=== PATIENT | female | born 1960 | race Two or more races ===

== ENCOUNTER 2020-09-19 10:43 | Outpatient (REF) | payer MEDICAID, SELFPAY | END 2020-09-19 10:44 | disposition home or self-care (01) | LOC: HO.LAB 10:43 | PROVIDERS: Visit Provider Internal Medicine | DX: Z20.828 Contact with and (suspected) exposure to other viral communicable diseases (principal) | CPT/HCPCS: C9803; U0003 ==

== ENCOUNTER 2020-10-19 14:25 | Outpatient (REF) | payer MEDICAID, SELFPAY | END 2020-10-19 14:26 | disposition home or self-care (01) | LOC: HO.LAB 14:25 | PROVIDERS: Visit Provider Internal Medicine | DX: Z20.828 Contact with and (suspected) exposure to other viral communicable diseases (principal) | CPT/HCPCS: C9803; U0003 ==

== ENCOUNTER 2020-12-25 10:07 | Outpatient (REF) | payer MEDICAID, SELFPAY ==
--- NOTE | ~2020-12-25 | MR_ITS ---
EXAMINATION: MRI RIGHT SHOULDER WITHOUT CONTRAST, LEFT CLINICAL INFORMATION: Right shoulder pain. Decreased range of motion. Weakness. Symptoms suggestive of rotator cuff tear. COMPARISON: None. TECHNIQUE: Multisequence MR imaging of the left shoulder was obtained without contrast on a high-field strength scanner. FINDINGS: ROTATOR CUFF: Mild distal supraspinatus tendinosis with possible bursal surface fraying measuring 0.8 cm in AP dimension. No full-thickness rotator cuff defect. No muscle atrophy or fatty infiltration. BICEPS: Normal. CORACOACROMIAL ARCH: The undersurface of the acromion is curved with no subacromial spur. Mild acromioclavicular osteoarthritis with associated marrow edema. LABRUM/CAPSULE: Normal. GLENOHUMERAL JOINT/MARROW: Normal. MR/MR shoulder LT wo con IMPRESSION: 1. Mild distal supraspinatus tendinosis with possible bursal surface fraying. No full-thickness rotator cuff defect. 2. Mild acromioclavicular osteoarthritis with mild associated marrow edema.
== END 2020-12-25 10:08 | disposition home or self-care (01) ==
LOC: HO.MRI 10:07
PROVIDERS: PCP Nurse Practitioner Primary Care; Visit Provider Nurse Practitioner Primary Care
DX: M25.512 Pain in left shoulder (principal)
CPT/HCPCS: 73221

== ENCOUNTER 2021-01-15 13:02 | Outpatient (REF) | payer MEDICAID, SELFPAY ==
--- NOTE | ~2021-01-15 | MM_ITS ---
EXAMINATION: MM DIAGNOSTIC DIGITAL BREAST TOMOSYNTHESIS, BILATERAL US DIAGNOSTIC ULTRASOUND BREAST, RIGHT CLINICAL INFORMATION: Recent mammography. Intermittent bilateral breast pain. No symptoms today. No palpable mass or discharge. COVID vaccine 1st dose right arm around 2 weeks ago. The lifetime risk of breast cancer based on the Tyrer-Cuzick Model is 6%. COMPARISON: Mammography: 10/09/2018, 09/24/2017 (new baseline). TECHNIQUE: Digital breast tomosynthesis is performed in both the craniocaudal and mediolateral oblique views along with computer-aided detection (CAD). Synthesized 2D images are generated from the tomosynthesis. Ultrasound right axillary is performed using grayscale imaging and color Doppler. FINDINGS: There are scattered areas of fibroglandular density (ACR BI-RADS breast composition Category b). Parenchymal pattern is similar to prior studies. There is no interval mass or developing density. No architectural abnormality. Again, there is biopsy clip marker mid upper outer left breast. There is no skin thickening or coarsening of the Jaun's ligaments. Right axillary nodes are better visualized on current exam, similar to 2017. Ultrasound right axilla shows no axillary adenopathy. There are several nodes with normal sergo architecture and color flow pattern. There is no skin thickening or edema tracking in soft tissue planes. Results are discussed with the patient at time of visit. MM/MM tomosynthesis diagnostic BI IMPRESSION: No mammographic evidence of malignancy or inflammatory changes. Unremarkable targeted right axillary ultrasound. ASSESSMENT: BI-RADS 1: Negative RECOMMENDATION: 1. Patient's intermittent migratory breast pain may be managed based on the clinical impression. 2. Otherwise, routine annual screening mammography. This patient's information was entered into a reminder system with a target due date for their next mammogram.
== END 2021-01-15 13:03 | disposition home or self-care (01) ==
LOC: HO.MAMMO 13:02
PROVIDERS: Visit Provider Advanced Practice Midwife
DX: N64.4 Mastodynia (principal)
CPT/HCPCS: 76642; 77062; 77066

== ENCOUNTER 2021-05-17 09:12 | Outpatient (REF) | payer MEDICAID, SELFPAY | END 2021-05-17 09:13 | disposition home or self-care (01) | LOC: HO.HOSX 09:12 | PROVIDERS: Visit Provider Orthopaedic Surgery | DX: Z13.89 Encounter for screening for other disorder (principal) ==

== ENCOUNTER 2021-08-07 10:03 | Outpatient (REF) | payer MEDICAID, SELFPAY ==
--- NOTE | ~2021-08-07 | MR_ITS ---
MRI OF THE BRAIN WITHOUT IV CONTRAST INDICATION: Colloid cyst of the brain. COMPARISON: None available. TECHNIQUE: Multiplanar multisequence MR imaging of the brain was obtained without IV contrast. FINDINGS: No definite colloid cyst is identified within the anterior aspect of the third ventricle at the level of the foramen of Weathers. There is a possible cyst located along the anterior margin of the hypothalamic leaflets above the optic chiasm that can be further assessed with a high-resolution axial FIESTA series and high-resolution MPRAGE postcontrast series. There is no hydrocephalus, extra-axial surface collection, or herniation. Nonspecific mild to moderate T2 signal changes throughout the supratentorial white matter, possibly chronic microangiopathy. The major flow voids at the skull base are preserved. There is no acute infarct on diffusion-weighted imaging. There is no intracranial hemorrhage on the gradient recalled echo acquisition. The midline structures are normal. The cerebellar tonsils are normally positioned. The cerebellum and brainstem are normal. The craniocervical junction is normal. Osseous marrow signal intensity is homogenous. The visualized soft tissues are unremarkable. MR/MR head/brain wo con IMPRESSION: - No definite colloid cyst is identified within the anterior aspect of the third ventricle at the level of the foramen of Weathers. There is a possible cyst located along the anterior margin of the hypothalamic leaflets above the optic chiasm that can be further assessed with a high-resolution axial FIESTA series and high-resolution MPRAGE postcontrast series. - Nonspecific mild to moderate T2 signal changes throughout the supratentorial white matter, possibly chronic microangiopathy.
== END 2021-08-07 10:04 | disposition home or self-care (01) ==
LOC: HO.MRI 10:03
PROVIDERS: Visit Provider Psychiatry & Neurology Neurology
DX: Q04.6 Congenital cerebral cysts (principal)
CPT/HCPCS: 70551

== ENCOUNTER 2022-03-06 08:50 | Outpatient (REF) | payer MEDICAID, SELFPAY ==
--- NOTE | ~2022-03-06 | MM_ITS ---
EXAMINATION: MM SCREENING DIGITAL BREAST TOMOSYNTHESIS, BILATERAL CLINICAL INFORMATION: Screening. Asymptomatic. The lifetime risk of breast cancer based on the Tyrer-Cuzick Model is 7%. COMPARISON: Mammography: 01/15/2021, 10/09/2018, 09/24/2017 (new baseline) TECHNIQUE: Digital breast tomosynthesis is performed in both the craniocaudal and mediolateral oblique views along with computer-aided detection (CAD). Synthesized 2D images are generated from the tomosynthesis. Additional left MLO view is provided. FINDINGS: There are scattered areas of fibroglandular density (ACR BI-RADS breast composition Category b). There are no significant masses, abnormal calcifications, or other abnormalities. Biopsy clip marker again noted upper outer quadrant left breast. The parenchymal pattern is similar to prior studies. No developing density. No significant changes. MM/MM tomosynthesis screening BI IMPRESSION: No mammographic evidence of malignancy. ASSESSMENT: BI-RADS 1: Negative RECOMMENDATION: Routine annual mammography screening. This patient's information was entered into a reminder system with a target due date for their next mammogram.
== END 2022-03-06 08:51 | disposition home or self-care (01) ==
LOC: HO.MAMMO 08:50
PROVIDERS: Visit Provider Nurse Practitioner Primary Care
DX: Z12.31 Encounter for screening mammogram for malignant neoplasm of breast (principal)
CPT/HCPCS: 77063; 77067

== ENCOUNTER → 2022-08-22 10:33 | Outpatient (REF) | payer MEDICAID, SELFPAY | LOC: HO.SL 10:33 | PROVIDERS: PCP Nurse Practitioner Primary Care; Visit Provider Family Medicine | DX: R06.83 Snoring (principal); R53.83 Other fatigue | CPT/HCPCS: 95806 ==

== ENCOUNTER 2023-03-07 10:53 | Outpatient (REF) | payer MEDICAID, SELFPAY ==
--- NOTE | ~2023-03-07 | MM_ITS ---
EXAMINATION: MM SCREENING DIGITAL BREAST TOMOSYNTHESIS, BILATERAL CLINICAL INFORMATION: Screening. Asymptomatic. The lifetime risk of breast cancer based on the Tyrer-Cuzick Model is 6%. COMPARISON: Mammography: 03/06/2022, 01/15/2021, 10/09/2018 TECHNIQUE: Digital breast tomosynthesis is performed in both the craniocaudal and mediolateral oblique views along with computer-aided detection (CAD). Synthesized 2D images are generated from the tomosynthesis. FINDINGS: There are scattered areas of fibroglandular density (ACR BI-RADS breast composition Category b). There are no significant masses, abnormal calcifications, or other abnormalities. Breast tissue composition borders on heterogeneously dense. There is a biopsy clip marker upper outer quadrant left breast mid depth again seen. No developing density or architectural abnormality in either breast. The axilla and skin contours are unremarkable. No significant changes. MM/MM tomosynthesis screening BI IMPRESSION: No mammographic evidence of malignancy. ASSESSMENT: BI-RADS 1: Negative RECOMMENDATION: Routine annual mammography screening. This patient's information was entered into a reminder system with a target due date for their next mammogram.
== END 2023-03-07 10:54 | disposition home or self-care (01) ==
LOC: HO.MAMMO 10:53
PROVIDERS: PCP Nurse Practitioner Primary Care; Visit Provider Family Medicine
DX: Z12.31 Encounter for screening mammogram for malignant neoplasm of breast (principal)
CPT/HCPCS: 77063; 77067

== ENCOUNTER → 2023-03-18 12:50 | Outpatient (BNVA) | payer MEDICAID, SELFPAY | PROVIDERS: PCP Nurse Practitioner Primary Care; Visit Provider Nurse Practitioner Family | DX: G25.81 Restless legs syndrome (principal) | CPT/HCPCS: 99202 ==

== ENCOUNTER → 2023-04-07 20:30 | Outpatient (REF) | payer MEDICAID, SELFPAY | LOC: HO.SL 20:30 | PROVIDERS: PCP Nurse Practitioner Primary Care; Visit Provider Nurse Practitioner Family | DX: R06.83 Snoring (principal); R40.0 Somnolence; I10 Essential (primary) hypertension; G25.81 Restless legs syndrome; G47.33 Obstructive sleep apnea (adult) (pediatric) | CPT/HCPCS: 95810 ==

== ENCOUNTER 2023-05-27 10:24 | Outpatient (AMB) | payer MEDICAID, SELFPAY ==
--- NOTE | 2023-05-27 10:25 | A.OFFVIS_ITS ---
Intake Vital Signs 05/27/23 10:26 Height 5 ft 4 in Weight 146 lb BMI 25.1 BP 128/76 Blood Pressure Location Rt brachial Position Sitting Pulse 67 Pulse Source Pulse Oximeter Pulse Oximetry (%) 98 Intake Visit Reasons: 2 mnts f/u for sleep -Confirmed Intake Note: Patient presents for follow up Allergies No Known Allergies Allergy (Verified 05/27/23 10:27) HPI HPI Comments History of Present Illness Details 62 y/o female patient presents for follow up of sleep study. The PSG sleep study result was significant for mild degree of sleep apnea with increased severity in REM sleep. The AHI was 7/hr, REM AHI was 28/hr and oxygen vasu was 85%. Pt started APAP at [id number] two weeks ago. The compliance and therapy response (04/27/23-05/26/23) reviewed with the patient. The usage days 14 days and the average usage hours 7 hours. The median pressure is 5.9 and the AHI was 0.4/hr. Pt reports that she sleeps well with CPAP and able to sleep 7 hrs straight. She feels more relaxed and wakes up refreshed and has more daytime energy. [facility] Surgical History H/O eye surgery H/O shoulder surgery H/O wrist surgery Family History Mother Diabetes Heart disease Arthritis Neuropathy Father HTN (hypertension) Lung disease Son Asthma Social History Alcohol intake: never Patient Tobacco Use Status: Never used Tobacco Review of Systems Const All systems reviewed & are unremarkable except as noted in HPI and below ENT Reports Normal hearing present Neuro Reports Normal hearing present Physical Exam Vital Signs: Last Vital Signs Pulse 67 05/27/23 10:26 BP 128/76 05/27/23 10:26 Pulse Ox 98 05/27/23 10:26 BMI result Body Mass Index 25.1 Const General: cooperative Nutritional Appearance: overweight Orientation/consciousness: patient oriented x3 Neck Neck: Yes full ROM and Yes supple Resp Effort & Inspection: normal respiratory effort and able to speak in complete sentences Neuro General: patient oriented x3, gait normal, moves all extremities and no focal motor deficits Cranial nerves: Yes Bilaterally intact EOM present, Yes Normal facial strength present, Yes Midline tongue present, Yes Symmetric palate elevation present, Yes Normal hearing present, Yes Ability to bilaterally rotate head present and Yes Ability to bilaterally elevate shoulders present Cognition (Neuro): normal cognition Gait exam (Neuro): Normal gait present Motor exam (neuro): 5/5 motor strength present throughout, Pronator motor function not present and no tremor noted Psych Appearance: grossly normal Mental Status: mental status grossly normal Speech and movement: Normal speech and movement present Affect: normal affect Attitude: cooperative Assessment & Plan Assessment & Plan (1) CAMILO (obstructive sleep apnea): Comment: Mild degree of sleep apnea with increased severity in REM sleep. The AHI was 7/hr, REM AHI was 28/hr and oxygen vasu was 85%. Code(s): G47.33 - Obstructive sleep apnea (adult) (pediatric) Plan Advised patient to continue to use APAP [id number] as patient experiences good clinical result, better sleep quality and daytime sleepiness has improved. Stressed compliance, use CPAP nightly and more than 4 hours. Clean mask and tubing regularly. Coding Level of Care Code Est Pt Level 3 (54119) Diagnoses CAMILO (obstructive sleep apnea) G47.33
[2023-05-27 10:26] VITALS: BP 128/76; PULSE 67; O2SAT 98; BMI 25.1
== END 2023-05-27 10:41 | disposition home or self-care (01) ==
LOC: HO.HSMC 10:24
PROVIDERS: PCP Nurse Practitioner Primary Care; Visit Provider Nurse Practitioner Family
DX: G47.33 Obstructive sleep apnea (adult) (pediatric) (principal)
CPT/HCPCS: 99213

== ENCOUNTER → 2023-05-27 10:24 | Outpatient (BNVA) | payer MEDICAID, SELFPAY | PROVIDERS: PCP Nurse Practitioner Primary Care; Visit Provider Nurse Practitioner Family | DX: G47.33 Obstructive sleep apnea (adult) (pediatric) (principal); Z99.89 Dependence on other enabling machines and devices | CPT/HCPCS: 99213 ==

== ENCOUNTER 2023-06-05 07:43 | Outpatient (REF) | payer MEDICAID, SELFPAY | END 2023-06-05 07:44 | disposition home or self-care (01) | LOC: HO.HOSX 07:43 | PROVIDERS: Visit Provider Orthopaedic Surgery | DX: Z13.89 Encounter for screening for other disorder (principal) ==

== ENCOUNTER 2023-06-23 18:18 | Outpatient (REF) | payer MEDICAID, SELFPAY ==
[2023-06-23 19:06] LABS: Influenza A PCR NEGATIVE (Negative); Influenza B PCR NEGATIVE (Negative); Resp Syncy Virus RNA Qual PCR NEGATIVE (Negative); SARS COV2 PCR INHOUSE NEGATIVE (Negative)
== END 2023-06-23 18:19 | disposition home or self-care (01) ==
LOC: HO.HHCLNP 18:18
PROVIDERS: Visit Provider Registered Nurse
DX: Z20.822 Contact with and (suspected) exposure to COVID-19 (principal); J06.9 Acute upper respiratory infection, unspecified
CPT/HCPCS: 0241U

== ENCOUNTER 2023-07-10 13:11 | Outpatient (REF) | payer MEDICAID, SELFPAY ==
--- NOTE | ~2023-07-10 | US_ITS ---
EXAMINATION: US HAND, RIGHT CLINICAL INFORMATION: Right hand pain. COMPARISON: None available. TECHNIQUE: Ultrasound was performed in the area of clinical concern using a high-frequency linear transducer. FINDINGS: There is a small rounded mass seen measuring 5 x 4 x 6 mm. This is hypoechoic and demonstrates increased through-transmission. No vascularity can be demonstrated. US/US extremity nonvascular IMPRESSION: Small hypoechoic mass in the area of clinical concern. This appears to represent a benign cyst with no vascularity.
== END 2023-07-10 13:12 | disposition home or self-care (01) ==
LOC: HO.US 13:11
PROVIDERS: PCP Nurse Practitioner Primary Care; Visit Provider Registered Nurse
DX: M79.641 Pain in right hand (principal)
CPT/HCPCS: 76882

== ENCOUNTER 2023-08-05 11:38 | Outpatient (REF) | payer MEDICAID, SELFPAY ==
[2023-08-07 07:09] LABS: Absolute CD3 Count 1016 cells/uL (840-3060); Absolute CD4 Count 530 cells/uL (490-1740); Absolute CD8 Count 485 cells/uL (180-1170); Absolute Lymphocytes 1554 cells/uL (850-3900); CD4 CD8 Ratio 1.09 (0.86-5.00); Percent CD3 Cells 65 % (57-85); Percent CD4 Cells 34 % (30-61); Percent CD8 Cells 31 % (12-42)
[2023-08-07 14:24] LABS: HIV RNA PCR Qn Copies 131 copies/mL (NOT DETECTED); HIV RNA PCR Qn Log Copies 2.12 (NOT DETECTED)
== END 2023-08-05 11:39 | disposition home or self-care (01) ==
LOC: HO.HHCL 11:38
PROVIDERS: Visit Provider Internal Medicine
DX: B20 Human immunodeficiency virus [HIV] disease (principal)
CPT/HCPCS: 36415; 80053; 80061; 85025; 86359; 86360; 87536

== ENCOUNTER 2023-09-22 11:22 | Outpatient (REF) | payer MEDICAID, SELFPAY ==
[2023-09-22 13:51] LABS: Estimated Average Glucose 114 mg/dL; Hemoglobin A1c % 5.6 % (<6.0)
[2023-09-23 06:23] LABS: Mumps Virus IgG Antibody <9.00 AU/mL; Rubella IgG Antibody 1.86 Index
[2023-09-23 08:04] LABS: ~HepC Num1 0.14 S/CO (0.00-0.79); ~Hepatitis C Antibody Nonreactive (Nonreactive)
[2023-09-23 14:54] LABS: HIV RNA PCR Qn Copies 281 copies/mL (NOT DETECTED); HIV RNA PCR Qn Log Copies 2.45 (NOT DETECTED)
[2023-09-23 23:48] LABS: C. trachomatis RNA TMA NOT DETECTED (NOT DETECTED); N. gonorrhoeae RNA TMA NOT DETECTED (NOT DETECTED)
[2023-09-24 03:13] LABS: Trichomonas vaginalis RNA NOT DETECTED (NOT DETECTED)
[2023-10-05 20:38] LABS: HIV 1 Integrase Proviral DNA DETECTED; HIV 1 PR RT Proviral DNA DETECTED
== END 2023-09-22 11:23 | disposition home or self-care (01) ==
LOC: HO.HHCL 11:22
PROVIDERS: Visit Provider Student in an Organized Health Care Education/Training Program
DX: B20 Human immunodeficiency virus [HIV] disease (principal)
CPT/HCPCS: 36415; 83036; 86735; 86762; 86765; 86803; 87491; 87536; 87591; 87661; 87900; 87901; 87906

== ENCOUNTER → 2023-10-15 10:12 | Outpatient (BNVA) | payer MEDICAID, SELFPAY | PROVIDERS: PCP Nurse Practitioner Primary Care; Visit Provider Physician Assistant | DX: Z12.11 Encounter for screening for malignant neoplasm of colon (principal); F40.218 Other animal type phobia | CPT/HCPCS: 99212 ==

== ENCOUNTER → 2023-10-15 10:12 | Outpatient (AMB) | payer MEDICAID, SELFPAY ==
--- NOTE | 2023-10-15 10:21 | MHC.OFFVIS ---
Intake Vital Signs 10/15/23 10:23 Height 5 ft 4 in Weight 145 lb BMI 24.9 BP 147/69 H Blood Pressure Location Lt brachial Position Sitting Pulse 71 Intake Visit Reasons: Colonoscopy Screening Intake Note: Patient 2nd pre colonoscopy screening. Patient cc: acid reflex on and off, and gassy with bad smell Blue Split Trimmer Required: Yes Blue Split Trimmer Name: Juliane [facility] interpeter Accompanied by: Self / Same As Patient Allergies No Known Allergies Allergy (Verified 10/15/23 10:20) Medication List - Last Reconciled 10/15/23 by Radha Fermin PA-C [id number] ala 50-200-25 mg (Biktarvy) 1 tab PO DAILY clonazepam 0.25 mg PO BEDTIME gabapentin 600 mg PO BEDTIME losartan 50 mg PO DAILY metoprolol succinate ER 50 mg PO DAILY omega-3 fatty acids 1,000 mg PO DAILY HPI HPI Comments History of Present Illness Details 62-year-old female referred for screening colonoscopy- gassy/-she eats a lot of almonds- she did take a trial of omeprazole however did not notice much change but admits she has that stops eating home meds. She then says that she does eat them to excess. As the only snack she eats. Appetite otherwise is good Bowels are normal, however request to be checked for parasites, she has occasional sensation that she experienced as a child at at which time she had parasites. She has no rectal pain, no pruritus, no rectal bleeding She says that she has already had rectal exam she does not have hemorrhoids there was no findings. She has no other GI or general complaints. She has no nausea, vomiting, hematemesis, hematochezia fever or chills [facility] Surgical History H/O eye surgery H/O wrist surgery H/O shoulder surgery Family History Mother Diabetes Heart disease Arthritis Neuropathy Father HTN (hypertension) Lung disease Son Asthma Social History Alcohol intake: never Patient Tobacco Use Status: Never used Tobacco Review of Systems Const All systems reviewed & are unremarkable except as noted in HPI and below Card Denies chest pain and Denies dyspnea Resp Denies dyspnea GI Denies abdominal pain, Denies hematochezia, Denies tenesmus, Denies change in stool character, Denies constipation, Denies GI cramping, Denies diarrhea, Denies loose stools, Denies nausea, Denies vomiting and Reports other (fear of parasites) Physical Exam Vital Signs: Last Vital Signs Pulse 71 10/15/23 10:23 BP 147/69 H 10/15/23 10:23 BMI result Body Mass Index 24.9 Const General: cooperative, healthy appearing, comfortable and no acute distress Orientation/consciousness: patient oriented x3 Limitations: language barrier Eyes Sclerae: sclerae normal Resp Effort & Inspection: normal respiratory effort and able to speak in complete sentences Auscultation: clear to auscultation bilaterally, no rales, no rhonchi and no wheezes Cardio Rate: regular rate Rhythm: regular rhythm Heart sounds: S1 normal heart sound present and S2 normal heart sound present GI Palpation (GI): Soft to palpation Skin General skin exam: no rashes or lesions noted Neuro General: patient oriented x3 Extrem General: Yes full ROM Psych Appearance: grossly normal and well kempt Mental Status: mental status grossly normal Speech and movement: Normal speech and movement present and Clear speech present Affect: normal affect Attitude: cooperative Thought process: Normal thought process present Thought content: Normal thought content present Assessment & Plan Assessment & Plan (1) Encounter for screening colonoscopy: Comment: Last colonoscopy about 13 years ago was normal- Code(s): Z12.11 - Encounter for screening for malignant neoplasm of colon Plan: Screening colonoscopy (2) Fear of parasites: Comment: Rectal exam-not done recent previous-no findings per patient report vague symptom- Code(s): 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 238 grams PO ONCE 1 day PRN 238 grams 0RF laxative effect bisacodyl (Dulcolax (bisacodyl)) Day before procedure, prep day Take 4 tablets by mouth upon awakening followed by large glass of water 20 mg (4 x 5 mg) PO ONCE 1 day 4 tabs 0RF colonoscopy prep Z12.11 - Encounter for screening for malignant neoplasm of colon Patient Instructions: colonoscopy screening MG prep, reviewed, Low FODMAP-literature given Stool O&P stool HP-if positive will treat Patient will call after stools samples have been submitted for results Dietary modifications back off on eating almonds monitor symptoms-she will call with progress needs boilermaker loftsman Coding Level of Care Code New Pt Level 3 (40862) Diagnoses Encounter for screening colonoscopy Z12.11 Fear of parasites F40.218 Time Spent (min) 30 Comment boilermaker loftsman
[2023-10-15 10:23] VITALS: BP 147/69; PULSE 71; BMI 24.9
== END ==
PROVIDERS: PCP Nurse Practitioner Primary Care; Visit Provider Physician Assistant
DX: Z01.818 Encounter for other preprocedural examination (principal); Z12.11 Encounter for screening for malignant neoplasm of colon; F40.218 Other animal type phobia
CPT/HCPCS: 99202

== ENCOUNTER 2023-10-22 12:05 | Outpatient (REF) | payer MEDICAID, SELFPAY | END 2023-10-22 12:06 | disposition home or self-care (01) | LOC: HO.LNP 12:05 | PROVIDERS: Visit Provider Physician Assistant | DX: A04.8 Other specified bacterial intestinal infections (principal); F40.218 Other animal type phobia | CPT/HCPCS: 87177; 87209; 87338 ==

== ENCOUNTER 2023-12-02 10:40 | Outpatient (AMB) | payer MEDICAID, SELFPAY ==
--- NOTE | 2023-12-02 11:05 | MHC.OFFVIS ---
Intake Vital Signs 12/02/23 11:10 Height 5 ft 4 in Weight 148 lb BMI 25.4 BP 140/70 H Blood Pressure Location Lt brachial Position Sitting Pulse 77 Pulse Source Pulse Oximeter Pulse Oximetry (%) 99 Oxygen Delivery Method Room Air Intake Visit Reasons: 6mnts f/u for sleep - CONF Intake Note: Patient presents for 6 month f/u. Allergies No Known Allergies Allergy (Verified 12/02/23 11:09) HPI HPI Comments History of Present Illness Details 63 y/o female patient presents for follow up of CAMILO on CPAP. The PSG sleep study result was significant for mild degree of sleep apnea with increased severity in REM sleep. The AHI was 7/hr, REM AHI was 28/hr and oxygen vasu was 85%. Pt started APAP at [id number]. The compliance and therapy response (11/02/23-12/01/23) reviewed with the patient. The usage days 90 % and the average usage hours 7 hours 20 min. The max pressure is 7.9 and the AHI was 0.4/hr. Pt reports that she sleeps well with CPAP and able to sleep 7 hrs straight. She feels more relaxed and wakes up refreshed and has more daytime energy. [facility] Surgical History H/O eye surgery H/O wrist surgery H/O shoulder surgery Family History Mother Diabetes Heart disease Arthritis Neuropathy Father HTN (hypertension) Lung disease Son Asthma Social History Alcohol intake: never Patient Tobacco Use Status: Never used Tobacco Review of Systems Const All systems reviewed & are unremarkable except as noted in HPI and below ENT Reports Normal hearing present Neuro Reports Normal hearing present Physical Exam Vital Signs: Last Vital Signs Pulse 77 12/02/23 11:10 BP 140/70 H 12/02/23 11:10 Pulse Ox 99 12/02/23 11:10 Oxygen Delivery Method Room Air 12/02/23 11:10 BMI result Body Mass Index 25.4 Const General: cooperative Nutritional Appearance: overweight Orientation/consciousness: patient oriented x3 Neck Neck: Yes full ROM and Yes supple Resp Effort & Inspection: normal respiratory effort and able to speak in complete sentences Neuro General: patient oriented x3, gait normal, moves all extremities and no focal motor deficits Cranial nerves: Yes Bilaterally intact EOM present, Yes Normal facial strength present, Yes Midline tongue present, Yes Symmetric palate elevation present, Yes Normal hearing present, Yes Ability to bilaterally rotate head present and Yes Ability to bilaterally elevate shoulders present Cognition (Neuro): normal cognition Gait exam (Neuro): Normal gait present Motor exam (neuro): 5/5 motor strength present throughout, Pronator motor function not present and no tremor noted Psych Appearance: grossly normal Mental Status: mental status grossly normal Speech and movement: Normal speech and movement present Affect: normal affect Attitude: cooperative Assessment & Plan Assessment & Plan (1) CAMILO (obstructive sleep apnea): Comment: Mild degree of sleep apnea with increased severity in REM sleep. The AHI was 7/hr, REM AHI was 28/hr and oxygen vasu was 85%. Code(s): G47.33 - Obstructive sleep apnea (adult) (pediatric) Plan Advised patient to continue to use APAP [id number] as patient experiences good clinical result, better sleep quality and daytime sleepiness has improved. Stressed compliance, use CPAP nightly and more than 4 hours. Clean mask and tubing regularly. Coding Level of Care Code Est Pt Level 3 (40912) Diagnoses CAMILO (obstructive sleep apnea) G47.33
[2023-12-02 11:10] VITALS: BP 140/70; PULSE 77; O2SAT 99; BMI 25.4
== END 2023-12-02 11:26 | disposition home or self-care (01) ==
PROVIDERS: PCP Nurse Practitioner Primary Care; Visit Provider Nurse Practitioner Family
DX: G47.33 Obstructive sleep apnea (adult) (pediatric) (principal)
CPT/HCPCS: 99213

== ENCOUNTER → 2023-12-02 10:40 | Outpatient (BNVA) | payer MEDICAID, SELFPAY | PROVIDERS: PCP Nurse Practitioner Primary Care; Visit Provider Nurse Practitioner Family | DX: G47.33 Obstructive sleep apnea (adult) (pediatric) (principal) | CPT/HCPCS: 99212 ==

== ENCOUNTER 2023-12-16 08:35 | Outpatient (REF) | payer MEDICAID, SELFPAY ==
[2023-12-18 07:24] LABS: HIV RNA PCR Qn Copies 135 copies/mL (NOT DETECTED); HIV RNA PCR Qn Log Copies 2.13 (NOT DETECTED)
== END 2023-12-16 08:36 | disposition home or self-care (01) ==
LOC: HO.HHCL 08:35
PROVIDERS: Visit Provider Student in an Organized Health Care Education/Training Program
DX: B20 Human immunodeficiency virus [HIV] disease (principal)
CPT/HCPCS: 36415; 87536

== ENCOUNTER 2024-01-30 10:20 | Outpatient (REF) | payer MEDICAID, SELFPAY ==
--- NOTE | ~2024-01-30 | MM_ITS ---
EXAMINATION: BONE DENSITOMETRY CLINICAL INDICATION: Postmenopausal. COMPARISON: Baseline BD dated 11/18/2017. TECHNIQUE: Using a SmartRx DXA System (software version: 13.1) manufactured by [employer], dual-energy x-ray absorptiometry was performed of the lumbar spine and left hip. The images are of good technical quality. Summary results are attached. FINDINGS: LEFT FEMUR, NECK: Current: BMD 0.975 g/cm2, Z-score 0.8, T-score -0.5, normal. Baseline: BMD 0.910 g/cm2. LEFT FEMUR, TOTAL: Current: BMD 1.049 g/cm2, Z-score 1.2, T-score 0.3, normal, 2.4% increase from baseline (<5% change is not significant). Baseline: BMD 1.024 g/cm2. AP SPINE L1-L4: Current: BMD 1.157 g/cm2, Z-score 1.0, T-score -0.2, normal, 4.2% decrease from baseline (<5% change is not significant). Baseline: BMD 1.208 g/cm2. IDENTIFIED RISK FACTORS: Menopause. HISTORY OF FRACTURE: Wrist. MEDICATIONS: Multivitamins. MM/XR DEXA axial skeleton IMPRESSION: 1. DIAGNOSIS: Normal bone density based on the lowest T-score value of -0.5 in the femoral neck applying World Health Organization criteria. 2. 10-YEAR FRACTURE RISK PREDICTION, FRAX: According to the guidelines, FRAX calculation should only be performed on patients in the osteopenia bone density category. Therefore, FRAX was not performed on this patient. 3. Treatment Recommendations: NOF guidelines recommend consideration for treatment in postmenopausal women and men age 50 and older presenting with the following: -A hip or vertebral (clinical or morphometric) fracture. -T-score less than or equal to -2.5 at the femoral neck or spine after appropriate evaluation to exclude secondary causes. -Low bone mass at the hip or spine and a 10-year fracture probability by FRAX of greater than or equal to 3% for hip fracture or greater than or equal to 20% for major osteoporotic fracture based on the [place] adapted WHO algorithm. 4. Other Recommendations: All treatment decisions require clinical judgment and consideration of individual patient factors, including patient preferences, comorbidities, previous drug use, risk factors not captured in the FRAX model (e.g. frailty, falls, vitamin D deficiency, increased bone turnover, interval significant decline in bone density) and possible under or overestimation of fracture risk by FRAX. FUTURE SCAN RECOMMENDATION: People with diagnosed cases of osteoporosis or at high risk for fracture should have regular bone mineral density tests. For patients eligible for Medicare, routine testing is allowed once every 2 years. The testing frequency can be increased to one year for patients who have rapidly progressing disease, those who are receiving or discontinuing medical therapy to restore bone mass, or have additional risk factors.
== END 2024-01-30 10:21 | disposition home or self-care (01) ==
LOC: HO.MAMMO 10:20
PROVIDERS: PCP Nurse Practitioner Primary Care; Visit Provider Student in an Organized Health Care Education/Training Program
DX: Z13.820 Encounter for screening for osteoporosis (principal); Z78.0 Asymptomatic menopausal state
CPT/HCPCS: 77080

== ENCOUNTER 2024-03-19 10:30 | Outpatient (REF) | payer MEDICAID, SELFPAY ==
--- NOTE | ~2024-03-19 | MM_ITS ---
EXAMINATION: MM SCREENING DIGITAL BREAST TOMOSYNTHESIS, BILATERAL CLINICAL INFORMATION: Screening. Asymptomatic. COMPARISON: Mammography: This study is compared with prior exams dating back to 2018. TECHNIQUE: Digital breast tomosynthesis is performed in both the craniocaudal and mediolateral oblique views along with computer-aided detection (CAD). Synthesized 2D images are generated from the tomosynthesis. FINDINGS: There are scattered areas of fibroglandular density (ACR BI-RADS breast composition Category b). There are no significant masses, abnormal calcifications, or other abnormalities. There is tissue marker in the left breast from prior benign MM/MM tomosynthesis screening BI percutaneous biopsy. IMPRESSION: No mammographic evidence of malignancy. ASSESSMENT: BI-RADS BI-RADS 2 - Benign Findings RECOMMENDATION: Routine annual mammography screening. 1 year F/U This examination should not preclude the clinical evaluation of a suspicious palpable abnormality. This patient's information was entered into a reminder system with a target due date for their next mammogram.
== END 2024-03-19 10:31 | disposition home or self-care (01) ==
LOC: HO.MAMMO 10:30
PROVIDERS: PCP Student in an Organized Health Care Education/Training Program; Visit Provider Nurse Practitioner Primary Care
DX: Z12.31 Encounter for screening mammogram for malignant neoplasm of breast (principal)
CPT/HCPCS: 77063; 77067

== ENCOUNTER → 2024-03-19 11:00 | Outpatient (BNV) | payer MEDICAID, SELFPAY | PROVIDERS: PCP Student in an Organized Health Care Education/Training Program; Visit Provider Radiology Diagnostic Radiology | DX: Z12.31 Encounter for screening mammogram for malignant neoplasm of breast (principal) | CPT/HCPCS: 77063; 77067 ==

== ENCOUNTER 2024-05-07 10:11 | Outpatient (REF) | payer MEDICAID, SELFPAY ==
[2024-05-07 11:15] LABS: MANUAL DIFF FLAG NO
[2024-05-07 11:20] LABS: Basophils Percent Auto 0.5 % (0-2); Eosinophils Absolute Auto 0.1 X10*3/uL (0.0-0.4); Eosinophils Percent Auto 2.1 % (0-4); Hematocrit 40.2 % (37.0-47.0); Hemoglobin 13.3 g/dl (12.0-16.0); Imm Gran Abs Auto 0.01 X10*3/uL (0.00-0.03); Imm Gran Pct Auto 0.2 % (0.0-0.4); Lymphocytes Absolute Auto 1.6 X10*3/uL (1.2-4.9); Lymphocytes Percent Auto 37.7 % (20-40); Mean Corpuscular HGB Conc 33.1 g/dl (31.0-35.0); Mean Corpuscular Hemoglobin 32.5 pg (27.0-33.0); Mean Corpuscular Volume 98.3 fL (80.0-98.0); Mean Platelet Volume 10.3 fL (9.4-12.3); Monocytes Absolute Auto 0.3 X10*3/uL (0.1-1.2); Monocytes Percent Auto 6.9 % (2-11); Neutrophils Absolute Auto 2.2 x10*3/uL (2.0-8.3); Neutrophils Percent Auto 52.6 % (45-73); Platelet Count 253 X10*3/uL (160-400); Red Blood Count 4.09 X10*6/uL (4.20-5.50); Red Cell Distribution Width 13.2 % (11.0-16.0); White Blood Count 4.2 X10*3/uL (4.8-10.8)
[2024-05-07 12:26] LABS: Alanine Aminotransferase 19 U/L (0-31); Albumin Level 4.3 g/dL (3.5-5.0); Alkaline Phosphatase 66 U/L (39-117); Anion Gap 11 (12-20); Aspartate Amino Transferase 16 U/L (5-31); Bilirubin Total 0.4 mg/dL (0.0-1.0); Blood Urea Nitrogen 14 mg/dL (9-16); Calcium 9.5 mg/dL (8.4-10.2); Carbon Dioxide 28 mmol/L (22-29); Chloride 107 mmol/L (96-108); Estimated Glomerular Filt Rate > 60; Glucose Random 91 mg/dL (60-115); Potassium 4.2 mmol/L (3.3-5.1); Sodium 142 mmol/L (135-145); Total Protein 7.4 g/dL (6.5-8.0)
[2024-05-10 00:14] LABS: TS Negative Control Passed; TS Panel A 0; TS Panel B 0; TS Positive Control Passed; TSpotTB Negative (Negative)
[2024-05-10 14:03] LABS: HIV RNA PCR Qn Copies NOT DETECTED copies/mL (NOT DETECTED); HIV RNA PCR Qn Log Copies NOT DETECTED (NOT DETECTED)
[2024-05-10 18:17] LABS: RPR Rapid Plasma Reagin NON-REACTIVE (NON-REACTIVE)
[2024-05-11 12:27] LABS: Absolute CD3 Count 1433 cells/uL (840-3060); Absolute CD4 Count 751 cells/uL (490-1740); Absolute CD8 Count 662 cells/uL (180-1170); Absolute Lymphocytes 2009 cells/uL (850-3900); CD4 CD8 Ratio 1.13 (0.86-5.00); Percent CD3 Cells 71 % (57-85); Percent CD4 Cells 37 % (30-61); Percent CD8 Cells 33 % (12-42)
== END 2024-05-07 10:12 | disposition home or self-care (01) ==
LOC: HO.HHCL 10:11
PROVIDERS: Visit Provider Student in an Organized Health Care Education/Training Program
DX: B20 Human immunodeficiency virus [HIV] disease (principal)
CPT/HCPCS: 36415; 80053; 85025; 86359; 86360; 86481; 86592; 87536

== ENCOUNTER 2024-06-16 17:33 | Outpatient (REF) | payer MEDICAID, SELFPAY | END 2024-06-16 17:34 | disposition home or self-care (01) | LOC: HO.HHCLNP 17:33 | PROVIDERS: Visit Provider Advanced Practice Midwife | DX: R35.0 Frequency of micturition (principal) | CPT/HCPCS: 36415; 87086; 88175 ==

== ENCOUNTER 2024-06-23 10:53 | Outpatient (REF) | payer MEDICAID, SELFPAY ==
--- NOTE | ~2024-06-23 | XR_ITS ---
EXAMINATION: XR FOOT, RIGHT CLINICAL INFORMATION: Atraumatic right foot pain x1 month. COMPARISON: 04/07/2018. TECHNIQUE: AP, lateral, and oblique views of the right foot. FINDINGS: Moderate sized enthesopathic spurs are present at the Achilles tendon insertion and plantar fascial origin on the calcaneus. There is multifocal joint space narrowing in the forefoot at the interphalangeal joints, most notable at the second through fifth DIP joint and fifth toe PIP joint, associated with marginal osteophytes. MTP joints appear relatively well preserved. Tiny marginal osteophytes are present in the midfoot joints. No erosions. Bone mineralization is normal. No fractures. XR/XR foot RT min 3V IMPRESSION: Mild multifocal osteoarthritis in the right foot, most notably at the interphalangeal joints. No acute osseous findings. Prominent calcaneal enthesopathic spurs. Electronically signed by: Laz Rivero MD 06/29/2024 11:17 AM EDT
== END 2024-06-23 10:54 | disposition home or self-care (01) ==
LOC: HO.XRAY 10:53
PROVIDERS: PCP Nurse Practitioner Primary Care; Visit Provider Nurse Practitioner Primary Care
DX: M79.671 Pain in right foot (principal)
CPT/HCPCS: 73630

== ENCOUNTER 2024-07-29 07:38 | Day surgery (SDC) | payer MEDICAID, SELFPAY ==
[2024-07-27 14:24] VITALS: BMI 24.9
--- NOTE | 2024-07-27 14:55 | P.CONAN_ITS ---
Documented by User: Haylee Mireles NP 07/27/24 14:55 HPI - Anesthesia Eval Consult details Narrative: 63yo F for Colonoscopy PMFSH Active Problems Active Problems: All Active Problems Fear of parasites (Acute) Encounter for screening colonoscopy (Acute) Right shoulder pain (Acute) CAMILO (obstructive sleep apnea) (Acute) Daytime sleepiness (Acute) Snoring (Acute) Past Medical History Medical History Depression HIV (human immunodeficiency virus infection) Fibromyalgia Elevated cholesterol HTN (hypertension) CAMILO on CPAP Family History Family History Mother Diabetes Heart disease Arthritis Neuropathy Father HTN (hypertension) Lung disease Son Asthma Surgical History Surgical History H/O colonoscopy H/O eye surgery H/O wrist surgery H/O shoulder surgery Social History Social History Are you a primary career services coordinator to a significant other at home: No Do you presently have visiting nurse or other home services: No Alcohol intake: never Patient Tobacco Use Status: Never used Tobacco Use of substances other than those prescribed or required for medical reasons: No Have you been hit, kicked, punched, or otherwise hurt by someone within the past year? If so, by whom?: No Are you DNR?: No Advance Directives: No Advance Directives Information Provided: Yes Recently lost weight without trying: No Meds Allergies Allergy/AdvReac Type Severity Reaction Status Date / Time No Known Allergies Allergy Verified 12/02/23 11:09 Home Medications ?Medication ?Instructions ?Recorded ?Confirmed ?Last Taken ?Type bictegravir 50 mg-emtricitabine 1 tab PO DAILY 03/18/23 07/27/24 Unknown History 200 mg-tenofovir alafenam 25 mg tablet (Biktarvy) clonazepam 0.5 mg tablet 0.25 mg PO BEDTIME 03/18/23 07/27/24 Unknown History gabapentin 600 mg tablet 600 mg PO BEDTIME 03/18/23 07/27/24 Unknown History losartan 50 mg tablet 50 mg PO DAILY 03/18/23 07/27/24 Unknown History metoprolol succinate 50 mg 50 mg PO DAILY 03/18/23 07/27/24 Unknown History tablet,extended release 24 hr omega-3 fatty acids 1,000 mg 1,000 mg PO DAILY 03/18/23 07/27/24 Unknown History capsule Exam Height,Weight and Vital Signs: Height 5 ft 4 in Weight 65.771 kg Assessment and Plan Assessment Anesthesia Assessment: Chart Reviewed Documented by User: Muna Prater MD 07/29/24 10:14 [facility] Past Medical History Medical History Depression HIV (human immunodeficiency virus infection) Fibromyalgia Elevated cholesterol HTN (hypertension) CAMILO on CPAP Family History Family History Mother Diabetes Heart disease Arthritis Neuropathy Father HTN (hypertension) Lung disease Son Asthma Surgical History Surgical History H/O colonoscopy H/O eye surgery H/O wrist surgery H/O shoulder surgery History of Problems with Anesthesia: No Social History Social History Are you a primary career services coordinator to a significant other at home: No Do you presently have visiting nurse or other home services: No Alcohol intake: never Patient Tobacco Use Status: Never used Tobacco Use of substances other than those prescribed or required for medical reasons: No Have you been hit, kicked, punched, or otherwise hurt by someone within the past year? If so, by whom?: No Are you DNR?: No Advance Directives: No Advance Directives Information Provided: Yes Recently lost weight without trying: No Meds Allergies Allergy/AdvReac Type Severity Reaction Status Date / Time No Known Allergies Allergy Verified 12/02/23 11:09 Home Medications ?Medication ?Instructions ?Recorded ?Confirmed ?Last Taken ?Type bictegravir 50 mg-emtricitabine 1 tab PO DAILY 03/18/23 07/27/24 Unknown History 200 mg-tenofovir alafenam 25 mg tablet (Biktarvy) clonazepam 0.5 mg tablet 0.25 mg PO BEDTIME 03/18/23 07/27/24 Unknown History gabapentin 600 mg tablet 600 mg PO BEDTIME 03/18/23 07/27/24 Unknown History losartan 50 mg tablet 50 mg PO DAILY 03/18/23 07/27/24 Unknown History metoprolol succinate 50 mg 50 mg PO DAILY 03/18/23 07/27/24 Unknown History tablet,extended release 24 hr omega-3 fatty acids 1,000 mg 1,000 mg PO DAILY 03/18/23 07/27/24 Unknown History capsule Exam Airway Mallampati Class: II TM Dist: >3cm Neck ROM: Full Loose/Missing/Broken Teeth: No Heart: RRR Lungs: CTA Assessment and Plan Assessment Anesthesia Assessment: Anesthesia Plan Discussed Final Anesthetic Review History of Problems with Anesthesia: No NPO: Yes ASA Class: III Final Preanesthetic Review: Meds/Allgs Chart Reviewed, Consent Obtained/Reviewed and Anes Risks/Benef Reviewed Patient Risk: Intermediate Procedure Risk: Low Anesthetic Plan Anesthetic Plan: MAC: Disposition: Standard PACU
--- OUTSIDE RECORDS SUMMARY | 2024-07-29 07:41 | XMS_ITS | Continuity of Care Document ---
Author Organization [facility] Address [address] [place] [address] [address] [place] [address]- Care Team Providers Care Teacher Education Director Name Role Phone Jackie FULLER, Radha Thompson Primary Care Physician [place] [facility] [place] - 08/29/[address] [place] [address]- Encounter Diagnosis AIN (anal intraepithelial neoplasia) anal canal(Discharge Diagnosis) - 08/22/23 Attending Physician: Rex FULLER, Marjan Cage Referring Physician: Radha Mejia NP Problem List Condition Confirmation Course Effective Dates Status H ealth Status Informant AIN (anal intraepithelial neoplasia) anal canal Confirmed Active Diagnosis Diagnosis Type Effective Dates Health Status Clinical Service Informant AIN (anal intraepithelial neoplasia) anal canal Discharge Diagnosis 08/22/23 Vital Signs Most recent to oldest [Reference Range]: 1 Height 163.56 cm (08/22/23 11:45 AM) Weight 66 kg (08/22/23 11:45 AM) Pulse Rate [55-90 bpm] 93 bpm *H* (08/22/23 11:45 AM) Body Mass Index [18.5-24.99 kg/m2] 24.67 kg/m2 (08/22/23 11:45 AM) Blood Pressure [90-138/55-84 mm Hg] 150/ 72mm Hg *H* (08/22/23 11:45 AM) Respiratory Rate [16-30 br/min] 18 br/mi n (08/22/23 11:45 AM) Temperature [96.8-100.4 DegF] 97.7 DegF (08/22/23 11:45 AM) Blood pressure sites Arm, right (08/22/23 11:45 AM) Temperature Route Temporal (08/22/23 11:45 AM) Weight Obtained Via Standing scale (08/22/23 11:45 AM) Patient Care team information Care Team Personnel Name: Radha Mejia NP Position: S Outreach Member Role: PCP Address: Address: [address] [place] [address]- Care Team Related Persons Name: CLARK CAPELLAN Address: [place] [address]
--- OUTSIDE RECORDS SUMMARY | 2024-07-29 07:41 | XMS_ITS | Continuity of Care Document ---
Author Organization [facility] Address [address] [place] [address] [address] [place] [address]- Care Team Providers Care Personal Counselor Name Role Phone Jackie FULLER, Radha Thompson Primary Care Physician [phone] [place] [facility] [place]/21/23 - 09/17/[address] [place] [address]- [place] Attending Physician: Rex FULLER, Marjan Cage Referring Physician: Radha Mejia NP Problem List Condition Confirmation Course Effective Dates Status H ealth Status Informant AIN (anal intraepithelial neoplasia) anal canal Confirmed Active Patient Care team information Care Team Personnel Name: Radha Mejia NP Position: [facility] Outreach Member Role: PCP Address: Address: [address] [place] [address], [place] [address]- Care Team Related Persons Name: CLARK CAPELLAN Address: [place] [address]
--- OUTSIDE RECORDS SUMMARY | 2024-07-29 07:41 | XMS_ITS | Continuity of Care Document ---
Author Organization [facility] Address [address] [place] [address] [address] [place] [address]- Care Team Providers Care Advisor Advocate Angel Co Founder Name Role Phone Radha Mejia NP Primary Care Physician [place] [facility] [place] 05/14/23 - 05/21/[address] [place] [address]- [place] Encounter Diagnosis Pap smear of anus with ASCUS(Discharge Diagnosis) - 05/14/23 Attending Physician: Marjan Goodman NP Referring Physician: Antonette Moscoso CNM Problem List Diagnosis Diagnosis Type Effective Dates Health Status Cl inical Service Informant Pap smear of anus with ASCUS Discharge Diagnosis 05/14/23 Vital Signs Most recent to oldest [Reference Range]: 1 Weight 65.5 kg (05/14/23 1:59 PM) Pulse Rate [55-90 bpm] 102 bpm *H* (05/14/23 1:59 PM) Blood Pressure [90-138/55-84 mm Hg] 179/ 68mm Hg *H* (05/14/23 1:59 PM) Respiratory Rate [16-30 br/min] 18 br/mi n (05/14/23 1:59 PM) Temperature [96.8-100.4 DegF] 98.3 DegF (05/14/23 1:59 PM) Blood pressure sites Arm, right (05/14/23 1:59 PM) Temperature Route Temporal (05/14/23 1:59 PM) Weight Obtained Via Standing scale (05/14/23 1:59 PM) Patient Care team information Care Team Personnel Name: Radha Mejia NP Position: S Outreach Member Role: PCP Address: Address: [address] [place] [address], [place] [address]- Care Team Related Persons Name: CLARK CAPELLAN Address: [place] [id number]
--- OUTSIDE RECORDS SUMMARY | 2024-07-29 07:41 | XMS_ITS | Continuity of Care Document ---
Author Organization [facility] Address [address] [place] [address] [address] [place] [address]- Care Team Providers Care Barrel Cap Setter Name Role Phone Radha Mejia NP Primary Care Physician Encounter [facility] Date(s): 08/22/23 - 09/21/[address] [place] [address]- [place] Attending Physician: Michel Hammond Admitting Physician: Michel Hammond Referring Physician: Michel Hammond Problem List Condition Confirmation Course Effective Dates Status H ealth Status Informant AIN (anal intraepithelial neoplasia) anal canal Confirmed Active Laboratory * Event Display: Non Lab Results Authored Date: Patient Care team information Care Team Personnel Name: Radha Mejia NP Position: S Outreach Member Role: PCP Address: Address: [address] [place] [address], [place] [address]- Care Team Related Persons Name: CLARK CAPELLAN Address: [place] [address]
[2024-07-29 09:33] VITALS: BP 177/60; PULSE 62; RESP 16; TEMP 36.8; O2SAT 98; BMI 26.4
[2024-07-29] MEDS: Lactated Ringers 1,000 ML 100 ML IVCONT (09:40)
--- NOTE | 2024-07-29 10:16 | P.HPSUR_ITS ---
Pre-Procedural Eval Section A - 24 Hr Update-Section A only Date of Service: 07/29/24 Section B - Complete if H&P > 30 days Chief Complaint: Encounter for screening for malignant neoplasm of Relevant Family History (Specify if Yes): No Relevant Social History: None Present Medications: see Short Stay Collaborative assessment Medical History: Significant History (Depression HIV (human immunodeficiency v irus infection) Fibromyalgia Elevated cholesterol HTN (hypertension) CAMILO on CPAP) History of Previous Operations: Relevant previous surgery/procedure and date(s) ( H/O colonoscopy H/O eye surgery H/O wrist surgery H/O shoulder surgery) Allergies: Allergies Allergy/AdvReac Type Severity Reaction Status Date / Time No Known Allergies Allergy Verified 12/02/23 11:09 Review of Systems Sugical H&P ROS: Negative: Constitution, Cardiovascular, Respiratory, Neurological, Psychiatric, Hem-Onc, Allergic/Immunologic, Gastrointestinal, Genitourinary, Musculoskeletal, Integumentary, Endocrine and Eyes/Ears/Nose/Throat Exam Surgical H&P Exam: Normal: HEENT, Normal: Heart, Normal: Lungs, Normal: Extremities, Normal: Abdomen, Normal: Skin and Normal: Neurological Plan Diagnosis/Plan: Unchanged I have reviewed the history and physical and performed a pertinent physical examination on my patient. No changes have occurred unless specified. Time Spent With Patient Time: Total time managing care of this patient today ____ minutes.
--- NOTE | 2024-07-29 10:51 | P.OPN-COLO_ITS ---
Colonoscopy Operative Note Operative Note Date of Service: 07/29/24 Narrative: Operative Information Procedure Description: Colonoscopy Indication: screening Anesthesia: MAC COLONOSCOPY Instrument: Olympus variable stiffness pediatric scope 190L Colonoscopy Monitoring: Vital signs and clinical assessment, continuous EKG monitoring, Pulse oximetry, Carbon Dioxide monitoring and blood pressure monitoring were done throughout the procedure. Colon withdrawal time was 7 minutes. Procedure: The patient was placed in the left lateral decubitis position and pre-procedure medications were administered. After a digital rectal examination of the ano-rectum, the video colonoscope was inserted into the rectum and advanced through the colon to the cecum/TI. The colonoscope was slowly withdrawn in a retrograde panoramic fashion and the colon mucosa was carefully examined including a retroflexed view of the rectum. Findings and interventions are described below. Procedure Difficulty: easy Findings: Terminal Ileum-normal Cecum:normal Right sided retroflexion- normal Ascending Colon: normal Transverse Colon -normal Descending Colon:normal Sigmoid Colon: 4-5 mm sessile polyp removed with biopsy forceps, cold Rectum: Retroflexion with small internal hemorrhoids seen, grade I Anorectum - normal Intervention: cold forceps Colon preparation: [place] Bowel Preparation Scale Right colon; 3 Transverse colon: 3 Left colon; 3 (0 = Unprepared colon segment with mucosa not seen due to solid stool that cannot be cleared. 1 = Portion of mucosa of the colon segment seen, but other areas of the colon segment not well seen due to staining, residual stool and/or opaque liquid. 2 = Minor amount of residual staining, small fragments of stool and/or opaque liquid, but mucosa of colon segment seen well. 3 = Entire mucosa of colon segment seen well with no residual staining, small fragments of stool or opaque liquid) Impression and Post Procedure Diagnosis: colon polyp internal hemorrhoids Plan: High fiber diet leaflet Avoid straining at stool, epsom salts and sitz bath, anusol supps or cream Repeat Colonoscopy in 5 years if adenomatous polyp, 10 yrs if hyperplastic or earlier if clinically indicated Above findings were reviewed with the patient and relevant handouts were provided if indicated.
[2024-07-29 10:55] VITALS: BP 98/49; PULSE 70; RESP 16; TEMP 36.1; O2SAT 98
[2024-07-29 11:10] VITALS: BP 105/56; PULSE 63; RESP 16; TEMP 36.1; O2SAT 100
== END 2024-07-29 11:44 | disposition home or self-care (01) ==
PROVIDERS: PCP Nurse Practitioner Primary Care; Visit Provider Internal Medicine Gastroenterology
PROC: 0DJD8ZZ Inspection of Lower Intestinal Tract, Via Natural or Artificial Opening Endoscopic (ICD-10-PCS; CPT 45378; principal; 2024-07-29 11:10)
DX: Z12.11 Encounter for screening for malignant neoplasm of colon (principal); K63.5 Polyp of colon; K64.0 First degree hemorrhoids; B20 Human immunodeficiency virus [HIV] disease; F32.A Depression, unspecified; I10 Essential (primary) hypertension; E78.00 Pure hypercholesterolemia, unspecified; M79.7 Fibromyalgia; G47.33 Obstructive sleep apnea (adult) (pediatric); Z99.89 Dependence on other enabling machines and devices; Z79.899 Other long term (current) drug therapy
CPT/HCPCS: 45380; 88305; J2003; J2704

== ENCOUNTER → 2024-07-29 07:38 | Outpatient (BNV) | payer MEDICAID, SELFPAY | PROVIDERS: PCP Nurse Practitioner Primary Care; Visit Provider Internal Medicine Gastroenterology | DX: Z12.11 Encounter for screening for malignant neoplasm of colon (principal); K63.5 Polyp of colon; K64.0 First degree hemorrhoids | CPT/HCPCS: 45380 ==

== ENCOUNTER 2024-11-15 12:19 | Emergency (ER) | payer MEDICAID, SELFPAY ==
--- NOTE | ~2024-11-15 | XR_ITS ---
EXAMINATION: XR CHEST 2 VIEWS HISTORY: cough COMPARISON: Comparison is made with the prior examination dated 05/14/2018. FINDINGS: PA and lateral views of the chest are submitted. The lungs are expanded and clear. There is no pleural effusion, pneumothorax, or pulmonary vascular congestion. The heart is normal in size. The bones are intact. There is suture anchors in the right humeral head. XR/XR chest 2V IMPRESSION: No acute cardiopulmonary abnormality. Electronically signed by: Des Singh MD 11/15/2024 01:34 PM [facility]
[2024-11-15 12:58] VITALS: BP 171/60; PULSE 67; RESP 16; TEMP 36.6; O2SAT 97; BMI 26.4
--- NOTE | 2024-11-15 13:01 | ED.URI ---
HPI - URI/Sore Throat General Chief Complaint: Abdominal Pain Stated Complaint: cold, stomach pain rad up Related Data Home Medications ?Medication ?Instructions ?Recorded ?Confirmed bictegravir 50 mg-emtricitabine 1 tab PO DAILY 03/18/23 07/27/24 200 mg-tenofovir alafenam 25 mg tablet (Biktarvy) clonazepam 0.5 mg tablet 0.25 mg PO BEDTIME 03/18/23 07/27/24 gabapentin 600 mg tablet 600 mg PO BEDTIME 03/18/23 07/27/24 losartan 50 mg tablet 50 mg PO DAILY 03/18/23 07/27/24 metoprolol succinate 50 mg 50 mg PO DAILY 03/18/23 07/27/24 tablet,extended release 24 hr omega-3 fatty acids 1,000 mg 1,000 mg PO DAILY 03/18/23 07/27/24 capsule Previous Rx's ?Medication ?Instructions ?Recorded bisacodyl 5 mg tablet,delayed 20 mg (4 x 5 mg) PO ONCE 10/15/23 release (Dulcolax (bisacodyl)) colonoscopy prep 1 day #4 tabs polyethylene glycol 3350 17 238 g PO ONCE PRN laxative effect 10/15/23 gram/dose oral powder (Miralax) 1 day #238 grams Allergies Allergy/AdvReac Type Severity Reaction Status Date / Time Iodinated Contrast Media Allergy Swelling Verified 11/15/24 13:03 [facility] Past Medical History Medical History Depression HIV (human immunodeficiency virus infection) Fibromyalgia Elevated cholesterol HTN (hypertension) CAMILO on CPAP Surgical History H/O colonoscopy H/O eye surgery H/O wrist surgery H/O shoulder surgery Family History Family History Mother Diabetes Heart disease Arthritis Neuropathy Father HTN (hypertension) Lung disease Son Asthma Social History Social History Are you a primary resident care manager rn to a significant other at home: No Do you presently have visiting nurse or other home services: No Alcohol intake: never Patient Tobacco Use Status: Never used Tobacco Advance Directives: No Advance Directives Information Provided: No Physical Exam Vital Signs: Vital Signs: Last Vital Signs Temp 97.9 F 11/15/24 12:58 Pulse 67 11/15/24 12:58 Resp 16 11/15/24 12:58 BP 171/60 H 11/15/24 12:58 Pulse Ox 97 11/15/24 12:58 BMI result Body Mass Index 26.4 Course Course Course Narrative: This is an RME: Additional HPI, ROS, PE not included below will be deferred to primary provider. RME assessment and note performed by: Chetna White PA-C This is a 88-fghr-fiw-female, with a hx of CAMILO, who presents to the ER with complaints of cough x 1 week. Reporting epigastric pain, nausea, and diarrhea. No vomiting. No urinary symptoms. No CP or SOB Plan: Labs, EKG, cxr, further ER eval needed. Reevaluation(s) Reevaluation #1: Patient left without completing treatment. Medications Administered Discontinued Medications Generic Name Dose Route Start Last Admin Trade Name Freq PRN Reason Stop Dose Admin Acetaminophen 650 mg 11/15/24 21:13 11/15/24 21:15 Acetaminophen 325 Mg Tablet PO 11/15/24 21:14 650 mg ONCE ONE Administration Ondansetron HCl 4 mg 11/15/24 16:08 11/15/24 16:09 Ondansetron Odt 4 Mg Tab.Rapdis TRANSLINGU 11/15/24 16:09 4 mg ONCE ONE Administration Medical Decision Making Lab Data 11/15/24 13:19 11/15/24 13:19 Labs: Lab Results 11/15/24 Range/Units 13:19 WBC 5.8 (4.8-10.8) X10*3/uL RBC 4.19 L (4.20-5.50) X10*6/uL Hgb 13.5 (12.0-16.0) g/dl Hct 40.1 (37.0-47.0) % MCV 95.7 (80.0-98.0) fL MCH 32.2 (27.0-33.0) pg MCHC 33.7 (31.0-35.0) g/dl RDW 12.8 (11.0-16.0) % Plt Count 225 (160-400) X10*3/uL MPV 9.6 (9.4-12.3) fL Immature Gran % (Auto) 0.2 (0.0-0.4) % Neut % (Auto) 57.1 (45-73) % Lymph % (Auto) 34.2 (20-40) % [place] % (Auto) 5.5 (2-11) % Eos % (Auto) 2.7 (0-4) % Baso % (Auto) 0.3 (0-2) % Lymph # (Auto) 2.0 (1.2-4.9) X10*3/uL [place] # (Auto) 0.3 (0.1-1.2) X10*3/uL Eos # (Auto) 0.2 (0.0-0.4) X10*3/uL Baso # (Auto) 0.0 (0.0-0.2) X10*3/uL Abs Immat Gran (auto) 0.01 (0.00-0.03) X10*3/uL Absolute Neuts (auto) 3.3 (2.0-8.3) x10*3/uL Absolute Nucleated RBC 0.000 (0.0-0.012) X10*3/uL Nucleated RBC % (auto) 0.0 (0.0-0.2) /100WBC Smear Tech's Comments VERIFIED Sodium 139 (135-145) mmol/L Potassium 4.2 (3.3-5.1) mmol/L Chloride 102 (96-108) mmol/L Carbon Dioxide 26 (22-29) mmol/L Anion Gap 15 (12-20) BUN 10 (9-16) mg/dL Creatinine 0.71 (0.5-1.4) mg/dL Estim Creat Clear Calc 79.8 Estimated GFR > 60 Random Glucose 122 H (60-115) mg/dL Calcium 8.7 D (8.4-10.2) mg/dL Magnesium 2.2 (1.6-2.6) mg/dL Total Bilirubin 0.4 (0.0-1.0) mg/dL Direct Bilirubin 0.1 (0.0-0.5) mg/dL AST 25 (5-31) U/L ALT 27 (0-31) U/L Alkaline Phosphatase 76 (39-117) U/L Troponin I High Sens < 2.7 (<3.5-17.0) ng/L Total Protein 7.7 (6.5-8.0) g/dL Albumin 4.1 (3.5-5.0) g/dL Lipase 18 (8-78) U/L Urine Color Yellow Urine Appearance Turbid Urine pH 7.5 (5.0-9.0) Ur Specific [place] 1.020 (1.005-1.025) Urine Protein Negative (Neg-Trace) mg/dL Urine Glucose (UA) Negative (Negative) mg/dL Urine Ketones Trace (Negative) mg/dL Urine Blood Trace H (Negative) Urine Nitrite Negative (Negative) Ur Leukocyte Esterase Negative (Negative) Urine RBC 3-5 H (0-2) /HPF Urine WBC 0-5 (0-5) /HPF Ur Squamous Epith Cells 0-2 (0-2) /HPF Urine Bacteria None Seen (None Seen) Hyaline Casts 0-2 (0-2) /LPF Influenza Type A (PCR) POSITIVE A (Negative) Influenza Type B (PCR) NEGATIVE (Negative) RSV RNA Qual (PCR) NEGATIVE (Negative) SARS-CoV-2 RNA (RT-PCR) NEGATIVE (Negative) Discharge Plan Discharge Clinical Impression: Cough Patient Disposition: Left W/O Completing Treatment Prescriptions: No Action Biktarvy 50-200-25 mg tablet 1 tab PO DAILY losartan 50 mg tablet 50 mg PO DAILY metoprolol succinate 50 mg tablet extended release 24 hr 50 mg PO DAILY gabapentin 600 mg tablet 600 mg PO BEDTIME clonazepam 0.5 mg tablet 0.25 mg PO BEDTIME Rx Instructions: administer 30 minutes before bedtime omega-3 fatty acids 1,000 mg capsule 1,000 mg PO DAILY bisacodyl [Dulcolax (bisacodyl)] 5 mg tablet,delayed release (DR/EC) 20 mg PO ONCE 1 Days Qty: 4 0RF Rx Instructions: Day before procedure, prep day Take 4 tablets by mouth upon awakening followed by large glass of water polyethylene glycol 3350 [Miralax] 17 gram/dose powder 238 g PO ONCE PRN (Reason: laxative effect) 1 Days Qty: 238 0RF Rx Instructions: Take as directed by mouth the day before your procedure. Discharge Date/Time: 11/15/24 22:32
--- NOTE | 2024-11-15 13:03 | ECG_ITS ---
Test Reason : epigastric pain Blood Pressure : */* mmHG Vent. Rate : 67 BPM Atrial Rate : 67 BPM P-R Int : 166 ms QRS Dur : 66 ms QT Int : 442 ms P-R-T Axes : 47 44 73 degrees QTcB Int : 467 ms Normal sinus rhythm Normal ECG No previous ECGs available Referred By: Chetna White Electronically Signed By: BENNETT BETTENCOURT MD
[2024-11-15 13:26] LABS: Basophils Percent Auto 0.3 % (0-2); Eosinophils Absolute Auto 0.2 X10*3/uL (0.0-0.4); Eosinophils Percent Auto 2.7 % (0-4); Hematocrit 40.1 % (37.0-47.0); Hemoglobin 13.5 g/dl (12.0-16.0); Imm Gran Abs Auto 0.01 X10*3/uL (0.00-0.03); Imm Gran Pct Auto 0.2 % (0.0-0.4); Lymphocytes Percent Auto 34.2 % (20-40); MANUAL DIFF FLAG SCAN; Mean Corpuscular HGB Conc 33.7 g/dl (31.0-35.0); Mean Corpuscular Hemoglobin 32.2 pg (27.0-33.0); Mean Corpuscular Volume 95.7 fL (80.0-98.0); Mean Platelet Volume 9.6 fL (9.4-12.3); Monocytes Absolute Auto 0.3 X10*3/uL (0.1-1.2); Monocytes Percent Auto 5.5 % (2-11); Neutrophils Absolute Auto 3.3 x10*3/uL (2.0-8.3); Neutrophils Percent Auto 57.1 % (45-73); Platelet Count 225 X10*3/uL (160-400); Red Blood Count 4.19 X10*6/uL (4.20-5.50); Red Cell Distribution Width 12.8 % (11.0-16.0); SCAN SMEAR FLAG 1; White Blood Count 5.8 X10*3/uL (4.8-10.8)
[2024-11-15 13:28] LABS: Appearance Urine Turbid; Color Urine Yellow; Glucose Urine UA Negative (Negative); Leukocyte Esterase Urine Negative (Negative); Nitrite Urine Negative (Negative); PH 7.5 (5.0-9.0); UMIC TRIGGER UACC YES; Urine Blood Trace (Negative); Urine Ketones Trace mg/dL (Negative); Urine Protein Negative (Neg-Trace)
[2024-11-15 13:33] LABS: Bacteria Urine None Seen (None Seen); Hyaline Casts Urine 0-2 /LPF (0-2); Squamous Epithelial Cell Urine 0-2 /HPF (0-2); WBC Urine 0-5 /HPF (0-5)
[2024-11-15 13:40] LABS: Alanine Aminotransferase 27 U/L (0-31); Albumin Level 4.1 g/dL (3.5-5.0); Alkaline Phosphatase 76 U/L (39-117); Anion Gap 15 (12-20); Aspartate Amino Transferase 25 U/L (5-31); Bilirubin Direct 0.1 mg/dL (0.0-0.5); Bilirubin Total 0.4 mg/dL (0.0-1.0); Blood Urea Nitrogen 10 mg/dL (9-16); Calcium 8.7 mg/dL (8.4-10.2); Carbon Dioxide 26 mmol/L (22-29); Chloride 102 mmol/L (96-108); Creatinine Clr Calc Pharmacy 79.8; Estimated Glomerular Filt Rate > 60; Glucose Random 122 mg/dL (60-115); Lipase 18 U/L (8-78); Magnesium 2.2 mg/dL (1.6-2.6); Potassium 4.2 mmol/L (3.3-5.1); Sodium 139 mmol/L (135-145); Total Protein 7.7 g/dL (6.5-8.0)
[2024-11-15 13:51] LABS: Troponin-I High Sensitivity < 2.7 ng/L (<3.5-17.0)
[2024-11-15 13:53] LABS: SLIDE REVIEW VERIFIED
[2024-11-15 14:05] LABS: Influenza A PCR POSITIVE (Negative); Influenza B PCR NEGATIVE (Negative); Resp Syncy Virus RNA Qual PCR NEGATIVE (Negative); SARS COV2 PCR INHOUSE NEGATIVE (Negative)
[2024-11-15] MEDS: Ondansetron ODT 4 MG TAB.RAPDIS TRANSLINGU (16:09)
[2024-11-15] MEDS: Acetaminophen 325 MG TABLET 650 MG PO (21:15)
== END 2024-11-15 22:32 | disposition left against medical advice (07) ==
LOC: HO.ED 22:23
PROVIDERS: Physician Assistant Medical; Emergency Provider Student in an Organized Health Care Education/Training Program; PCP Nurse Practitioner Primary Care
DX: R05.9 Cough, unspecified (principal); R10.13 Epigastric pain; B20 Human immunodeficiency virus [HIV] disease; I10 Essential (primary) hypertension; Z79.899 Other long term (current) drug therapy; Z03.818 Encounter for observation for suspected exposure to other biological agents ruled out
CPT/HCPCS: 0241U; 71046; 80048; 80076; 81001; 83690; 83735; 84484; 85025; 93005; 99283

== ENCOUNTER → 2024-11-15 13:03 | Outpatient (BNV) | payer MEDICAID, SELFPAY | PROVIDERS: Emergency Provider Student in an Organized Health Care Education/Training Program; PCP Nurse Practitioner Primary Care; Visit Provider Internal Medicine Cardiovascular Disease | DX: R10.13 Epigastric pain (principal) | CPT/HCPCS: 93010 ==

== ENCOUNTER 2024-11-29 10:28 | Outpatient (AMB) | payer MEDICAID, SELFPAY ==
--- NOTE | 2024-11-29 10:59 | A.OFFVIS_ITS ---
Vital Signs 11/29/24 11:05 Height 5 ft 4 in Weight 157 lb 6 oz BMI 27.0 BP 160/90 H Blood Pressure Location Lt brachial Position Sitting Pulse 75 Pulse Source Pulse Oximeter Pulse Oximetry (%) 98 Oxygen Delivery Method Room Air Intake Visit Reasons: 1 year FU Intake Note: Patient presents for a 1 year f/u for CAMILO. Compliance report uploaded. Pt reports doing much better with sleep. Sales And Marketing Specialist Required: Yes Sales And Marketing Specialist Language: Cathode Washer Services: Sales And Marketing Specialist Present Sales And Marketing Specialist Name: Courtney Accompanied by: Self / Same As Patient Allergies Iodinated Contrast Media Allergy (Verified 11/29/24 11:05) Swelling HPI Comments Details: 64-y/o female patient presents for follow up of CAMILO on CPAP. The PSG sleep study result was significant for mild degree of sleep apnea with increased severity in REM sleep. 04/07/2023, In-lab PSG, AHI was 7/hr, REM AHI was 28/hr and oxygen vasu was 85% (SpO2 under 88% for 0.8 minutes of study time) and average SpO2 93%. PLMS index 7.2/hour with PLMS arousal index of 0.7/hour. Pt patient reports she continues to be compliant with APAP at [id number]. Rarely may miss a day, if she needs to go to bed later get up early for some reason. Overall, she feels that she sleeps better and has more daytime energy since using APAP. She states she has enough PAP supplies. She does use distilled water in her machine. She is curious how often the machine itself should be changed. [address], [facility] [place] Email: [email or web address] Compliance Report Usage 10/29/2024 - 11/27/2024 Usage days 26/30 days (87%) >= 4 hours 26 days (87%) < 4 hours 0 days (0%) Usage hours 180 hours 10 minutes Average usage (total days) 6 hours 0 minutes Average usage (days used) 6 hours 56 minutes Median usage (days used) 6 hours 44 minutes AirSense 10 AutoSet Serial number [id number] Mode AutoSet Min Pressure 5 cmH2O Max Pressure 20 cmH2O EPR Fulltime EPR level 2 Response Standard Therapy effects: Pressure - cmH2O Median: 5.4 95th percentile: 7.1 Maximum: 8.2 Leaks - L/min Median: 0.0 95th percentile: 2.6 Maximum: 16.2 Events per hour AI: 0.3 HI: 0.1 AHI: 0.4 PFSH Medical History Depression HIV (human immunodeficiency virus infection) Fibromyalgia Elevated cholesterol HTN (hypertension) CAMILO on CPAP Surgical History H/O colonoscopy H/O eye surgery H/O wrist surgery H/O shoulder surgery Family History Mother Diabetes Heart disease Arthritis Neuropathy Father HTN (hypertension) Lung disease Son Asthma Social History Are you a primary critical care physician to a significant other at home: No Do you presently have visiting nurse or other home services: No Alcohol intake: never Patient Tobacco Use Status: Never used Tobacco Physical Exam Vital Signs: Last Vital Signs Pulse 75 11/29/24 11:05 BP 160/90 H 11/29/24 11:05 Pulse Ox 98 11/29/24 11:05 Oxygen Delivery Method Room Air 11/29/24 11:05 BMI result Body Mass Index 27.0 Const General: no acute distress Orientation/consciousness: patient oriented x3 Neuro General: patient oriented x3 Psych Mental Status: mental status grossly normal Speech and movement: Clear speech present Attitude: cooperative Assessment & Plan Assessment & Plan (1) CAMILO (obstructive sleep apnea): Comment: Mild degree of sleep apnea with increased severity in REM sleep. The AHI was 7/hr, REM AHI was 28/hr and oxygen vasu was 85%. Code(s): G47.33 - Obstructive sleep apnea (adult) (pediatric) Category: Medical Plan Continue APAP 5-20 cmH2O w/ EPR 2 nightly > 4 hours, as pt continues to have good clinical effect from use.. Clean CPAP machine and supplies routinely. Change CPAP supplies routinely. Use distilled water in CPAP water reservoir. Discussed that her Pap device can continue to work for many years with good linnea ntenance and upkeep. Advised that if she ever does develop difficulties with the machine or the machine alerts her that there is a malfunction, she should contact regional home care and/or us Pt to contact us or respiratory company with any questions or concerns. Pt to follow-up in 12 months or sooner prn. Coding Level of Care Code Est Pt Level 3 (67312) Diagnoses CAMILO (obstructive sleep apnea) G47.33
[2024-11-29 11:05] VITALS: BP 160/90; PULSE 75; O2SAT 98; BMI 27.0
== END 2024-11-29 11:45 | disposition home or self-care (01) ==
PROVIDERS: PCP Nurse Practitioner Primary Care; Visit Provider Nurse Practitioner Family
DX: G47.33 Obstructive sleep apnea (adult) (pediatric) (principal)
CPT/HCPCS: 99213

== ENCOUNTER → 2024-11-29 10:28 | Outpatient (BNVA) | payer MEDICAID, SELFPAY | PROVIDERS: PCP Nurse Practitioner Primary Care; Visit Provider Nurse Practitioner Family | DX: G47.33 Obstructive sleep apnea (adult) (pediatric) (principal); Z99.89 Dependence on other enabling machines and devices | CPT/HCPCS: 99212 ==

== ENCOUNTER 2024-12-08 09:35 | Outpatient (REF) | payer MEDICAID, SELFPAY ==
[2024-12-08 11:27] LABS: MANUAL DIFF FLAG NO
[2024-12-08 11:32] LABS: Basophils Absolute Auto 0.1 X10*3/uL (0.0-0.2); Basophils Percent Auto 1.2 % (0-2); Eosinophils Absolute Auto 0.2 X10*3/uL (0.0-0.4); Eosinophils Percent Auto 5.4 % (0-4); Hemoglobin 12.6 g/dl (12.0-16.0); Imm Gran Abs Auto 0.01 X10*3/uL (0.00-0.03); Imm Gran Pct Auto 0.2 % (0.0-0.4); Lymphocytes Absolute Auto 1.7 X10*3/uL (1.2-4.9); Lymphocytes Percent Auto 40.6 % (20-40); Mean Corpuscular HGB Conc 32.3 g/dl (31.0-35.0); Mean Corpuscular Hemoglobin 31.6 pg (27.0-33.0); Mean Corpuscular Volume 97.7 fL (80.0-98.0); Mean Platelet Volume 10.9 fL (9.4-12.3); Monocytes Absolute Auto 0.4 X10*3/uL (0.1-1.2); Monocytes Percent Auto 9.4 % (2-11); Neutrophils Absolute Auto 1.8 x10*3/uL (2.0-8.3); Neutrophils Percent Auto 43.2 % (45-73); Platelet Count 241 X10*3/uL (160-400); Red Blood Count 3.99 X10*6/uL (4.20-5.50); Red Cell Distribution Width 13.5 % (11.0-16.0); White Blood Count 4.2 X10*3/uL (4.8-10.8)
[2024-12-08 12:02] LABS: Albumin Level 4.1 g/dL (3.5-5.0); Alkaline Phosphatase 72 U/L (39-117); Anion Gap 11 (12-20); Aspartate Amino Transferase 26 U/L (5-31); Bilirubin Total 0.3 mg/dL (0.0-1.0); Blood Urea Nitrogen 20 mg/dL (9-16); Calcium 8.7 mg/dL (8.4-10.2); Carbon Dioxide 25 mmol/L (22-29); Chloride 109 mmol/L (96-108); Cholesterol 220 mg/dL (<200); Estimated Glomerular Filt Rate > 60; Glucose Random 95 mg/dL (60-115); HDL Cholesterol 50 mg/dL (>40); LDL Cholesterol Calculated 151 mg/dL (<100); Potassium 4.2 mmol/L (3.3-5.1); Sodium 141 mmol/L (135-145); Total Protein 7.7 g/dL (6.5-8.0); Triglycerides 99 mg/dL (<150)
[2024-12-08 12:16] LABS: Alanine Aminotransferase 32 U/L (0-31)
[2024-12-08 12:18] LABS: HBS Num1 46.82 mIU/mL (0-7.99); HBc Num1 0.14 S/CO (0.00-0.79); HBsAGNum1 0.41 S/CO (0.00-0.99); Hepatitis B Core Antibody Nonreactive (Nonreactive); Hepatitis B Surface Antigen Negative (Negative); ~HepC Num1 0.09 S/CO (0.00-0.79); ~Hepatitis B Surface Antibody REACTIVE (Nonreactive); ~Hepatitis C Antibody Nonreactive (Nonreactive)
[2024-12-08 13:29] LABS: CT PCR NOT DETECTED (Not Detect.); NG PCR NOT DETECTED (Not Detect.)
[2024-12-08 14:14] LABS: Reflex LDLD? No
[2024-12-11 14:49] LABS: HIV RNA PCR Qn Copies 30 copies/mL (NOT DETECTED); HIV RNA PCR Qn Log Copies 1.48 (NOT DETECTED)
[2024-12-14 14:34] LABS: Absolute CD3 Count 1396 cells/uL (840-3060); Absolute CD4 Count 739 cells/uL (490-1740); Absolute CD8 Count 631 cells/uL (180-1170); Absolute Lymphocytes 1929 cells/uL (850-3900); CD4 CD8 Ratio 1.17 (0.86-5.00); Percent CD3 Cells 72 % (57-85); Percent CD4 Cells 38 % (30-61); Percent CD8 Cells 33 % (12-42)
== END 2024-12-08 09:36 | disposition home or self-care (01) ==
LOC: HO.HHCL 09:35
PROVIDERS: Visit Provider Internal Medicine
DX: Z21 Asymptomatic human immunodeficiency virus [HIV] infection status (principal)
CPT/HCPCS: 80053; 80061; 85025; 86359; 86360; 86704; 86706; 86803; 87340; 87491; 87536; 87591

== ENCOUNTER 2024-12-28 16:11 | Outpatient (REF) | payer MEDICAID, SELFPAY ==
[2024-12-28 16:38] LABS: Appearance Urine Clear; Color Urine Yellow; Glucose Urine UA Negative (Negative); Leukocyte Esterase Urine Negative (Negative); Nitrite Urine Negative (Negative); PH 6.5 (5.0-9.0); Specific Gravity - Urine 1.015 (1.005-1.025); UMIC TRIGGER UACC YES; Urine Blood Trace (Negative); Urine Ketones Negative (Negative); Urine Protein Negative (Neg-Trace)
[2024-12-28 16:40] LABS: Bacteria Urine None Seen (None Seen); Hyaline Casts Urine 0-2 /LPF (0-2); Squamous Epithelial Cell Urine 0-2 /HPF (0-2); WBC Urine 0-5 /HPF (0-5)
== END 2024-12-28 16:12 | disposition home or self-care (01) ==
LOC: HO.HHCLNP 16:11
PROVIDERS: Visit Provider Nurse Practitioner Primary Care
DX: R31.21 Asymptomatic microscopic hematuria (principal)
CPT/HCPCS: 81001

== ENCOUNTER 2025-01-21 12:45 | Outpatient (REF) | payer MEDICAID, SELFPAY ==
--- NOTE | ~2025-01-21 | US_ITS ---
CLINICAL HISTORY: microscopic hematuria US Renal Comparison: None Findings: Right kidney normal size and echotexture, 9.2 cm length. Left kidney normal size and echotexture, 9.6 cm length. There is a possible left renal calculus within a calyceal diverticulum. No collecting system dilatation of either kidney. Normal color Doppler. IMPRESSION: 1. No acute findings. This document has been electronically signed by: Joe Hager MD on 01/22/2025 07:44:52
== END 2025-01-21 12:46 | disposition home or self-care (01) ==
LOC: HO.US 12:45
PROVIDERS: PCP Nurse Practitioner Primary Care; Visit Provider Nurse Practitioner Primary Care
DX: R31.21 Asymptomatic microscopic hematuria (principal)
CPT/HCPCS: 76775

== ENCOUNTER → 2025-01-21 12:48 | Outpatient (BNV) | payer MEDICAID, SELFPAY | PROVIDERS: PCP Nurse Practitioner Primary Care; Visit Provider Specialist | DX: R31.1 Benign essential microscopic hematuria (principal) | CPT/HCPCS: 76775 ==

== ENCOUNTER 2025-01-25 09:57 | Outpatient (REF) | payer MEDICAID, SELFPAY | END 2025-01-25 09:58 | disposition home or self-care (01) | LOC: HO.LNP 09:57 | PROVIDERS: Visit Provider Advanced Practice Midwife | DX: Z21 Asymptomatic human immunodeficiency virus [HIV] infection status (principal) | CPT/HCPCS: 87626; 88112 ==

== ENCOUNTER 2025-02-24 10:43 | Outpatient (AMB) | payer MEDICAID, SELFPAY ==
--- NOTE | 2025-02-24 10:48 | A.OFFVIS_ITS ---
Intake Visit Reasons: microscopic hematuria Intake Note: New Patient presents for initial visit for microscopic hematuria Urology Medications: none Blood Thinner: none Smoker: never Wire Hanger Required: Yes Wire Hanger Services: Wire Hanger Present Wire Hanger Name: Belinda [phone] Accompanied by: Self / Same As Patient Allergies Iodinated Contrast Media Allergy (Verified 02/24/25 11:21) Swelling Medication List - Last Reconciled 02/24/25 by AMARJIT Elmore [id number]-dintgdas-[id number] ala 50-200-25 mg (Biktarvy) 1 tab PO DAILY clonazepam 0.25 mg PO BEDTIME gabapentin 600 mg PO BEDTIME losartan 50 mg PO DAILY metoprolol succinate ER 50 mg PO DAILY omega-3 fatty acids 1,000 mg PO DAILY HPI Comments Details: Sully is a very pleasant 64-year-old Faroese-speaking female patient of Dr. still. She has a past medical history of depression, HIV, fibromyalgia, hypercholesteremia, hypertension, and obstructive sleep apnea on CPAP. She presents to the office today as a new patient for microscopic hematuria. In discussion with the patient today she reports having followed up with her PCP at which time she was noted to have microscopic hematuria and recommendations were made for urology referral for further assessment evaluation. In review of patient's chart it appears a renal ultrasound was ordered and performed. These results were reviewed and communicated with the patient today. 01/18 bilateral kidneys are normal in size and echotexture. There is a possible left renal calculus within the calyceal diverticulum. No acute findings. When asked she denies any previous history of nicotine dependence and or workplace chemical exposure. She does report noting feeling of incomplete bladder emptying, urinary urgency and urinary frequency. She otherwise denies incontinence, nocturia, hematuria, dysuria, foul smelling urine, changes to urinary stream, flank pain, fever, and or chills. In office urinalysis results reviewed with the patient today 1+ microscopic hematuria. We discussed at length potential causes of microscopic hematuria as well as lower urinary tract symptoms patient was experiencing. Will send urine today for urine cytology. Will also obtain bladder ultrasound for further assessment evaluation. We discussed further treatment options of lower urinary tract symptoms patient was experiencing as well as risks and benefits of these treatment options. We discussed attempting to double void. We also discussed workup of microscopic hematuria to include in office cystoscopy. All questions were answered. She otherwise offers no other issues or concerns at this time. Discussion Notes I reviewed the nature of microscopic hematuria and explained potential causes as well as further workup. We discussed cytology's role in identifying cellular abnormalities in urine. I introduced double voiding to manage her bladder dysfunction, explaining how it may improve complete bladder emptying. Furthermore, I outlined the possibility and benefits of pelvic floor physical therapy versus medication, citing potential med-associated side effects and her current medication use. The follow-up in three months will help reassess and adjust management plans based on findings and symptom changes. The patient voiced understanding of these management strategies. [facility] Medical History Depression HIV (human immunodeficiency virus infection) Fibromyalgia Elevated cholesterol HTN (hypertension) CAMILO on CPAP Surgical History H/O colonoscopy H/O eye surgery H/O wrist surgery H/O shoulder surgery Family History Mother Diabetes Heart disease Arthritis Neuropathy Father HTN (hypertension) Lung disease Son Asthma Social History Are you a primary health care marketing manager to a significant other at home: No Do you presently have visiting nurse or other home services: No Alcohol intake: never Patient Tobacco Use Status: Never used Tobacco Review of Systems Const All systems reviewed & are unremarkable except as noted in HPI and below Physical Exam Const General: cooperative, healthy appearing, comfortable, no acute distress, well developed, alert and awake Orientation/consciousness: patient oriented x3 Limitations: language barrier HEENT Head: Yes normal to inspection, Yes normocephalic and Yes atraumatic Ears: hearing grossly normal bilaterally Eyes General: appearance normal, both eyes and all related structures Neck Neck: Yes normal visual inspection and Yes trachea midline Chest Chest palpation & inspection: normal inspection of the chest Resp Effort & Inspection: normal respiratory effort and able to speak in complete sentences Cardio Rate: regular rate GI Inspection: Yes normal to inspection General: Yes no CVA tenderness Back/Spine/Pelvis Back: no CVA tenderness Skin General skin exam: no rashes or lesions noted Neuro General: patient oriented x3 Extrem General: Yes normal to inspection Psych Appearance: grossly normal and well kempt Mental Status: mental status grossly normal Speech and movement: Normal speech and movement present and Clear speech present Affect: normal affect Attitude: cooperative Thought process: Normal thought process present Thought content: Normal thought content present Insight: Fair insight present (Psych) Judgement: Fair judgement present (Psych) Results AMB Urinalysis, Automated UA Leukoctes 0 Leighton/uL Last Edit by [employer] on 02/24/25 11:04 UA Nitrite Last Edit by [employer]ac[employer] Barrerajarod on 02/24/25 11:04 UA Urobilinogen 0.2 mg/dL Last Edit by [employer] on 02/24/25 11:04 UA Protein 0 mg/dL Last Edit by [employer] Barrerajarod on 02/24/25 11:04 UA pH 6.0 Last Edit by [facility] on 02/24/25 11:04 UA Blood 25 Oswaldo/uL Last Edit by [employer] on 02/24/25 11:04 UA Specific Esparto 1.010 Last Edit by [employer] on 02/24/25 11:04 UA Ketone Last Edit by [facility] on 02/24/25 11:04 UA Bilirubin 0 mg/dL Last Edit by [employer] on 02/24/25 11:04 UA Glucose 0 mg/dL Last Edit by [facility] on 02/24/25 11:04 Results Reviewed Results Reviewed: Laboratory Last Values Urine pH (Auto) 6.0 02/24/25 10:55 Specific Esparto (Auto) 1.010 02/24/25 10:55 Urine Protein (Auto) 0 mg/dL 02/24/25 10:55 Glucose (UA)(Auto) 0 mg/dL 02/24/25 10:55 Urine Blood (Auto) 25 Oswaldo/uL 02/24/25 10:55 Urine Bilirubin (Auto) 0 mg/dL 02/24/25 10:55 Urine Urobilinogen (Auto) 0.2 mg/dL 02/24/25 10:55 Leukocyte Esterase (Auto) 0 Leighton/uL 02/24/25 10:55 Assessment & Plan Assessment & Plan (1) Microscopic hematuria: Code(s): R31.29 - Other microscopic hematuria Category: Medical (2) Feeling of incomplete bladder emptying: Code(s): R39.14 - Feeling of incomplete bladder emptying Category: Medical Plan In office urinalysis results reviewed with the patient today; as noted above; will send for urine cytology. Recent renal imaging results reviewed with the patient today; as noted above. Will obtain bladder ultrasound for further assessment evaluation. We discussed potential causes of lower urinary tract symptoms patient was experiencing as well as microscopic hematuria; we discussed further workup as well as interventions and risks and benefits of these interventions Discussed attempting to double void Will refer to pelvic floor therapy for further assessment evaluation. We discussed potential near future in office cystoscopy for further assessment evaluation. Follow-up in 3 months with imaging and PVR; or sooner with any issues, concerns, and or questions Orders: Orders AMB Urinalysis Automated Today Z13.9 - Encounter for screening, unspecified Urine Cytology Today R31.29 - Other microscopic hematuria US bladder Today R39.12 - Poor urinary stream PT Evaluation and Treatment Today R39.14 - Feeling of incomplete bladder emptying Patient Instructions: The patient had an opportunity to ask questions regarding the treatment plan. All questions were answered. Physical exam, labs, and imaging were discussed and reviewed in detail. As well as risks, benefits, and discussion of treatment choices. No major barriers to understanding were identified. The patient expressed understanding and agreement with the above treatment plan. The patient was made aware they should contact our office by phone for worsening of their current condition, the appearance of new symptoms, or with any questions or concerns. Compliance is encouraged with any medications and follow up testing that is ordered. It is a privilege to be allowed the opportunity to participate in? your urological care.? Again, if you have any questions or concerns If you have any questions or concerns please do not hesitate to contact me. The office is [phone]. This note is constructed using voice recognition software. While every effort has been made to ensure accuracy restaurant floor manager errors may have been included. Yours sincerely, AMARJIT Elmore Coding Level of Care Code New Pt Level 3 (37127) Diagnoses Microscopic hematuria R31.29 Feeling of incomplete bladder emptying R39.14
== END 2025-02-24 11:26 | disposition home or self-care (01) ==
LOC: HO.HUSH 10:44
PROVIDERS: PCP Nurse Practitioner Primary Care; Visit Provider Nurse Practitioner Family
DX: R31.29 Other microscopic hematuria (principal); R39.14 Feeling of incomplete bladder emptying; Z13.9 Encounter for screening, unspecified
CPT/HCPCS: 99203

== ENCOUNTER 2025-02-24 10:43 | Outpatient (REF) | payer MEDICAID, SELFPAY ==
--- OUTSIDE RECORDS SUMMARY | 2025-02-24 12:37 | XMS_ITS | Data Portability ---
Author Organization TRACE Jh [facility], [facility] Address [address] [place] [address] Care Team Providers Care Quarry Supervisor Open Pit Name Role Phone NEAL UNRULY Primary Care Provider [phone] Assessment No assessment recorded. Plan of Treatment Reminders Order Date Submit Date Provider Last Modified By Organization Details Last Modified Time Details Appointments SURGERY @ [facility] 2024 09:30A M Lizeth castro MD Not available Not available Not available POST OP 30 2024 09:30A M Jada Tripp, OTR/L,CHT Not available Not available Not available Lab None recorde d. Referral None recorde d. Procedures None recorde d. Surgeries tenosyn ovectom y (SURG) 2024 025 [email or web address] [facility], [address], [place], [address], 02/17/2025 11:16:00 Imaging XR, hand, 3 or more view - rm 306 3V bilat hand pain 2024 025 [email or web address] [facility], [address], [address], [place], [address], 02/04/2025 11:55:34 XR, hand, 3 or more view - rm 306 3V left hand pain 2024 025 [email or web address] [facility], [address], [address], [place], [address], 02/04/2025 11:55:34 Medication Orders None recorde d. Patient TargetsNo targets recorded. Patient InstructionsNo instructions recorded. Reason for Referral None Reported. Results Created Date Observation Date Name Description Value Unit Range Abnormal Flag Note LastModifiedBy Organization Detail LastModifiedTime 02/05/20 25 02/04/2025 XR, hand, 3 or more view http:/ [email or web address] ?Encry pted=s hAaTro YD8dLq bEUv6g %2BXZw aYqtaq 0bqfl% 2Fg9IQ a4ajBk vP9nXo QUaueC m3YtLR FvZlgJ JJ8mAn HZtai3 0d0239 AC0KqY 3iDUqK hKiQtr MwF INTER[facility] [address], [place], [address], 02/04/2025 10:52:40 02/05/20 25 02/04/2025 XR, hand, 3 or more view [email or web address] ?Encry pted=s hAaTro YD8dLq bEUv6g %2BXZw aYqtaq 0bqfl% 2Fg9IQ a4ajBk vP9nXo QUaueC m3YtLR FvZlgJ JJ8mAn HZtai3 5s2762 AC0KqY 3iDUqK hKiQtr MwF INTERFACE [facility] [address], [place], [address], 02/04/2025 10:52:42 Result Notes None recorded. Problems Name Problem SNOMED Code Status Onset Date Resolution Date Notes Provider Name and Address Organization Details Recorded Time Tendinitis of left hand 8160708429660 9109 Active 2023 AGUEDA Jones'PERRI burns [facility] 4 10:55:49 Problem Notes None recorded. Procedures Surgical History Date Name Laterality Status Provider Name and Address Organization Details Recorded Time 5 Small Joint Kenalog Injection, L/R completed Dejah Wiseman PA-C [address], [place], [address], [facility] 02/04/2025 11:53:50 4 Tendon Sheath Kenalog Injection, L/R completed Dejah Wiseman PA-C [address], [place], [address], [facility] 04/07/2024 10:59:58 Imaging Results Imaging Date Name Status LastModified by Organiz ation Details LastModified Time 02/04/2025 XR, hand, 3 or more view completed INTERFACE [facility] [address], [place], [address], 02/04/2025 10:52:40 02/04/2025 XR, hand, 3 or more view completed INTERFACE [facility] [address], [place], [address], 02/04/2025 10:52:42 Procedure Notes None recorded. Medical Equipment None Reported. Allergies Allergen ID Allergen Name Allergen Category Reaction Reaction Severity Criticality Documentation Date Start Date Code Code System Note Provider Name and Address Organization Details Recorded Time 023959 iodine medicatio n Not available Not available Not available 02/07/2025 5933 RxNorm MOE LANDEROS [facility], [facility] 12:01:41 Medications Name Sig Start Date Stop Date Status Note LastModified by Organization Details LastModified Time multivitami n tablet TAKE 1 TABLET BY MOUTH EVERY EVENING WITH FOOD active Not Available Not Available No t Available losartan 50 mg tablet TAKE 1 TABLET BY MOUTH AT BEDTIME active Not Available Not Available No t Available gabapentin 600 mg tablet TAKE 1 TABLET BY MOUTH AT BEDTIME active Not Available Not Available No t Available ketoconazol e 2 % shampoo APPLY TO THE AFFECTED AREA(S) TOPICALLY EVERY DAY. LATHER, LEAVE FOR 5 MINUTES, THEN RINSE WITH WATER. 04/07 completed Not Available Not Available Not Available metoprolol succinate ER 50 mg tablet,exte nded release 24 hr TAKE 1 TABLET BY MOUTH EVERY DAY. DO NOT BREAK, CRUSH, DISSOLVE OR CHEW. active Not Available Not Available No t Available polyvinyl alcohol 1.4 % eye drops PLACE 1 DROP IN EACH EYE EVERY NIGHT DIRECTED 04/07 completed Not Available Not Available Not Available clonazepam 0.5 mg tablet TAKE 1 TABLET BY MOUTH AT BEDTIME active Not Available Not Available No t Available Deep Sea Nasal 0.65 % spray aerosol USE 2 SPRAYS IN EACH NOSTRIL NEEDED FOR CONGESTIO N 04/07 completed Not Available Not Available Not Available omeprazole 20 mg capsule,del ayed release TAKE 1 CAPSULE BY MOUTH EVERY DAY BEFORE A MEAL active Not Available Not Available No t Available bisacodyl 5 mg tablet,alexa yed release TAKE 4 TABLETS BY MOUTH WITH A FULL GLASS OF WATER IN THE MORNING ON DAY BEFORE PROCEDURE 04/07 completed Not Available Not Available Not Available estradiol 0.01% (0.1 mg/gram) vaginal cream INSERT 1 GRAM VAGINALLY ONCE DAILY FOR FOURTEEN DAYS THEN DECREASE TO TWICE A WEEK active Not Available Not Available No t Available timolol maleate 0.5 % eye drops INSTILL 1 DROP IN EACH EYE DAILY IN THE MORNING active Not Available Not Available No t Available fluticasone propionate 50 mcg/actuati on nasal spray,suspe nsion USE 1-2 SPRAYS IN EACH NOSTRIL BEFORE BEDTIME, MAY USE IN THE MORNING ALSO NEEDED 04/07 completed Not Available Not Available Not Available clotrimazol e 1 % topical cream APPLY TOPICALLY TWICE DAILY FOR 28 DAYS active Not Available Not Available No t Available omega-3 acid ethyl esters 1 gram capsule TAKE 2 CAPSULES BY MOUTH TWICE DAILY IN THE MORNING AND IN THE EVENING active Not Available Not Available No t Available sodium fluoride 1.1 %-potassium nitrate 5 % dental paste BRUSH TEETH FOR 2 MINUTES TWICE DAILY IN THE MORNING AND AT BEDTIME, SPIT OUT, DO NOT RINSE, NOTHING BY MOUTH FOR 30 MINUTES AFTER active Not Available Not Available No t Available blood pressure test kit-large cuff USE TO CHECK BLOOD PRESSURE EVERY DAY DIRECTED, CALL OFFICE IF BLOOD PRESSURE IS > 130/80 OR < 90/60 active Not Available Not Available No t Available ClearLax 17 gram/dose oral powder MIX AND DRINK DIRECTED ON DAY BEFORE PROCEDURE 04/07 completed Not Available Not Available Not Available Biktarvy 50 mg-200 mg-25 mg tablet TAKE 1 TABLET BY MOUTH EVERY DAY active Not Available Not Available No t Available Vitals Date Recorded Body height Body mass index (BMI) Body weight Provider Name and Address Organization Details Last Updated DateTime 04/07/2024 162.56 cm 25.7 kg/m2 54394.86 g AGUEDA BERRIOS [facility] 04/07/2024 10:06:20 Date Recorded Body height Body mass index (BMI) Body weight Provider Name and Address Organization Details Last Updated DateTime 02/04/2025 162.56 cm 25.7 kg/m2 62833.86 g LILLIAN MELVIN [facility] 02/04/2025 10:39:17 Social History Question Answer Notes LastModified by Organizat ion Details LastModified Time Tobacco Smoking Status Never Smoker AGUEAD POTTSEUX [facility], [facility] 04/07/2024 10:07:56 What Is Your Level Of Alcohol Consumption? None Information not available 04/07/2024 What Is Your Relationship Status? Information not available 04/07/2024 Do You Use Any Illicit Or Recreational Drugs? No Information not available 04/07/2024 Do You Or Have You Ever Used Any Other Forms Of Tobacco Or Nicotine? No Information not available 04/07/2024 Sex: Unknown Functional Status None recorded. Mental Status None recorded. Family History Nothing Reported. Medical History Condition Response Allergies/Hayfever N Coronary Artery Disease N Anxiety/Depression N Breathing or lung disorders N Emphysema N Nerve Disorders N Thyroid Problems N COPD N Pacemaker N Anemia N Kidney/Bladder Problems N Vascular Disease N Heart Trouble N Heart Attack ([place]) N Gastrointestinal Disease N Cholesterol Y Diabetes N Autoimmune disease N Bleeding Disorder N Orthotics N Arthritis Y Seizures/Epilepsy N Blood Clot N AIDS/HIV Y Congestive Heart Failure (CHF) N Acid Reflux (GERD) N Cancer N Stroke N Asthma N Circulation Problems N Peripheral Vascular Disease N Sleep Apnea Y Hepatitis N Heart Disease N Rheumatoid Arthritis N Arrhythmia N Pulmonary Embolism N Headaches N Fibromyalgia N Hypertension Y Osteoporosis N Gynecological HistoryNo gynecological history recorded. Obstetrics History GPAL:G 0 P 0 0 0 0 Past Encounters Encounter ID Performer Location Encounter Start Date Encounter Closed Date Diagnosis/Indication Diagnosis SNOMED-CT Code Diagnosis ICD10 Code Diagnosis Note [id number] [facility] [address] [place] [address] 04/07/2024 09:46:58 04/26/2024 12:22:43 Pain in right thumb 2390833468 646643 M79.030 [id number] [facility] [address] [place] [address] 02/04/2025 10:30:53 02/23/2025 12:54:35 Pain of bilateral hands 4585432448 4420015 M79.641 M79.642 Trigger th umb of right hand 6871048570 30255 M65.311 Health Concerns Section Related Observation LastModified by Organization Detai ls LastModified Time None Recorded Concern Status LastModified by Organization Details LastModified Time None Recorded Advance Directives Directive None Recorded Payers Encounter Date Sequence Insurance Name Policy Number Policy Mari Covered Member ID Mari Member ID Guarantor Name 04/07/2024 1 [place] Sully Vega Vega [id number] Sully Vega 02/04/2025 1 [place] Sully Vega Vega [id number] Sully Vega Notes Date Note Type Note Provider Name and Address Organization Details Recorded Time 04/07/2024 text/html I am seeing this patient under the supervision of Dr. Hidalgo who was available but who did not see the patient.HPI: Patient is a 63-year-old female presenting to the office today for evaluation of right thumb triggering, locking, and pain. Localizes the pain over the A1 phuc region of the thumb. I last saw the patient back in July 2023 for right trigger thumb and ring trigger finger and gave her cortisone injections for both. Reports her symptoms improved, however her right thumb symptoms are returning. She would like another cortisone injection today for her a thumb. Also reports pain in the left wrist. Localizes the pain to the radial styloid region. Denies recent falls or traumatic injury. Denies numbness or tingling.Past family, medical, social history and review of systems has been reviewed, updated and is located in the patient's chart.Examination: The patient is well appearing, alert and oriented x3 and in no acute distress. Inspection of the bilateral hand and wrist reveals mild edema both A1 phuc of the right thumb. Otherwise no edema, atrophy, erythema, ecchymoses or deformity. Skin is intact, no open wounds. Full movement of the forearm, wrist and digits bilaterally. Intact median and ulnar innervated intrinsics. Intact extrinsic wrist and digit flexors and extensors. Intact sensation of median, ulnar and radial nerve distributions. Good capillary refill. Patient is tender at the A1 phuc of the right thumb and the radial styloid region of the left wrist. Otherwise nontender about the wrist, hand, and digits bilaterally. Peripheral, vascular, lymphatic examination, skin, neurological, coordination, reflexes, sensation are within normal limits.X-rays ordered, obtained and reviewed independently today at [facility]: None indicated or performed today.Impression: Right trigger thumb, left wrist de Quervain's tendinitisPlan: I discussed my findings and the situation with the patient today. We discussed potential treatment options at this time. Patient would like a cortisone injection for the right trigger thumb today. We discussed the role of cortisone as well as its risks and benefits. Patient would like to proceed with an injection. Under sterile technique the patient's right thumb A1 phuc/flexor tendon sheath was injected with 1cc Kenalog. Patient tolerated the procedure well. Post procedure protocol was discussed with the patient. She would also like to try a wrist brace for the left wrist, she was provided with a script for this today. Patient will follow-up on an as needed basis. If symptoms persist return or things worsen or change she will call office. Patient agrees with this plan. All questions were answered.The patient has weakness and instability of their extremity which requires stabilization for this semi-rigid/rigid orthosis to improve their function. Verbal and written instructions for the use and application of this item were given. Patient was instructed that should the brace result in increased pain, decreased sensation, increased swelling or an overall worsening of their medical condition, to please contact our office immediately.Speech recognition wool tamper software was used to create portions of this document. An attempt at proofreading has been made to minimize errors. Please call for corrections. Dejah Wiseman PA-C [address] [facility] [address], [place], [address], [facility] 04/07/2024 11:34:39 02/04/2025 text/html I am seeing the patient today under the supervision of Dr. Mattson, who was available but who did not see the patient. HPI: Patient is a 64-year-old female presenting to the office today for evaluation of bilateral hand pain. I have seen her in the past for right trigger thumb which we have given her 2 injections for at this point, as well as right ring trigger finger which we have given her 1 injection for her at this point. Reports her right trigger thumb is starting to bother her again. As for her left hand, she reports that she feels her fingers are crooked and wants to know why that is. Denies any recent falls or injuries. They have a diagnosis of right trigger thumb and are scheduled for right trigger thumb release on TBD with Dr. Avila. ROS: Denies fevers, chills, or sweats. Denies SOB/CP. Past Medical History: HIV, hypertension, hyperlipidemia, sleep apnea on CPAP Past Surgical History: Left wrist ORIF, right shoulder surgeries, eye surgery Medications: Biktarvy, losartan, metoprolol, multivitamin, gabapentin as needed, clonazepam as needed Allergies: Iodine (itchy eyes and throat) Social History: Denies alcohol, tobacco, or illicit drug use. Family History: non contributory Physical Exam: H: 64 inches W: 150 LBSHEENT: WNLCardiac: RRR with no M/R/GLungs: CTAB with no W/R/RAbdomen: Soft, non tender with +bowel soundsExtremities: The patient is well appearing, alert and oriented x3 and in no acute distress. Inspection of the bilateral hand and wrist reveals mild edema both A1 phuc of the right thumb. Mild radial angulation of the left middle finger DIPJ likely due to arthritis changes. Otherwise no edema, atrophy, erythema, ecchymoses or deformity. Skin is intact, no open wounds. Full movement of the forearm, wrist and digits bilaterally. No laxity noted about the joints of the digits. Intact median and ulnar innervated intrinsics. Intact extrinsic wrist and digit flexors and extensors. Intact sensation of median, ulnar and radial nerve distributions. Good capillary refill. Patient is tender at the A1 phuc of the right thumb. She is also tender about the DIP joint of the left middle finger. Otherwise nontender about the wrist, hand, and digits bilaterally. Peripheral, vascular, lymphatic examination, skin, neurological, coordination, reflexes, sensation are within normal limits. X-rays ordered, obtained and reviewed independently today at [facility]: Three-view x-rays of the left hand reveal no acute fractures or dislocations. Arthritic joint changes noted about the digits particularly the middle finger DIP joint with some radial angulation noted. Previous films: Three-view x-rays of the right hand reveal no acute fractures or dislocations. Arthritic changes noted about the digits Impression:1. Right trigger thumb, status post 2 cortisone injections (last one March 2024)2. Right ring trigger finger, status post 1 cortisone injection3. Bilateral hand/finger OA Plan: I discussed my findings and the situation with the patient today. We discussed potential treatment options at this time. Patient would like a cortisone injection for the left middle finger DIP joint today. We discussed the role of cortisone as well as its risks and benefits. Patient would like to proceed with an injection. Under sterile technique the patient's left middle finger DIP joint was injected with 0.5 cc Kenalog. Patient tolerated the procedure well. Post procedure protocol was discussed with the patient. As for her right trigger thumb, we discussed conservative and surgical treatment options and risks and benefits of each, including details of the surgery. We discussed that since she already has had 2 injections, I would not recommend another cortisone injection at this point as too many cortisone injections for this can lead to tendon rupture. Patient would like to proceed with surgical intervention for the right trigger thumb Surgery as detailed above. Patient wishes to proceed. Strict NPO status after midnight discussed. Will follow up next day of surgery. Patient understands and agrees with this plan. All questions were answered. Speech recognition wool tamper software was used to create portions of this document. An attempt at proofreading has been made to minimize errors. Please call for corrections. Dejah Wiseman PA-C [address] [facility] [address], [place], [address], [facility] 02/04/2025 11:55:27 OBGyn Episode No OBEpisode recorded.
[2025-02-24 16:26] LABS: Urine Cytology See Pathology rpt
== END 2025-02-24 10:44 | disposition home or self-care (01) ==
LOC: HO.LNP 10:43
PROVIDERS: PCP Nurse Practitioner Primary Care; Visit Provider Nurse Practitioner Family
DX: R31.29 Other microscopic hematuria (principal); R39.14 Feeling of incomplete bladder emptying
CPT/HCPCS: 81003; 88112; 99212

== ENCOUNTER 2025-04-05 09:58 | Outpatient (REF) | payer MEDICAID, SELFPAY ==
--- OUTSIDE RECORDS SUMMARY | 2025-04-05 11:22 | XMS_ITS | Data Portability ---
Author Organization TRACE Jh Olsen [facility], [facility] Address [address] [place] [address] Care Team Providers Care Ergonomist Name Role Phone NEAL UNRULY Primary Care Provider [phone] Assessment No assessment recorded. Plan of Treatment [...] Surgeries tenosyn ovectom y (SURG) 2024 025 [id number] [facility], [address], [place], [address], 02/17/2025 11:16:00 Imaging XR, hand, 3 or more view - rm 306 3V bilat hand pain 2024 025 [id number] [facility], [address], [address], [place], [address], 02/04/2025 11:55:34 XR, hand, 3 or more view - rm 306 3V left hand pain 2024 025 [id number] [facility], [address], [address], [place], [address], 02/04/2025 11:55:34 Medication Orders None recorde d. [...] a4ajBk vP9nXo QUaueC m3YtLR FvZlgJ JJ8mAn HZtai3 8p6117 AC0KqY 3iDUqK hKiQtr MwF INTERFACE [facility] [address], [place], [address], 02/04/2025 10:52:40 02/05/20 25 02/04/2025 XR, hand, 3 or more view http:/ [email or web address] ?Encry pted=s hAaTro YD8dLq bEUv6g %2BXZw aYqtaq 0bqfl% 2Fg9IQ a4ajBk vP9nXo QUaueC m3YtLR FvZlgJ JJ8mAn HZtai3 7k3833 AC0KqY 3iDUqK hKiQtr MwF INTERFACE [facility] [address], [place], [address], 02/04/2025 10:52:42 Result Notes None recorded. Problems Name Problem SNOMED Code Status Onset Date Resolution Date Notes Provider Name and Address Organization Details Recorded Time Tendinitis of left hand 6261919385694 9109 Active 2023 AGUEDA Jones'PERRI burns [facility] 4 10:55:49 Problem Notes None recorded. Procedures Surgical History Date Name Laterality Status Provider Name and Address Organization Details Recorded Time 5 Small Joint Kenalog Injection, L/R completed Dejah Wiseman PA-C [address], [place], [address], [facility] 02/04/2025 11:53:50 4 Tendon Sheath Kenalog Injection, L/R completed Dejah Wiseman PA-C [address], [place], [address], [facility] 04/07/2024 10:59:58 Imaging Results None recorded. Procedure Notes None recorded. Medical Equipment None Reported. Allergies Allergen ID Allergen Name Allergen Category Reaction Reaction Severity Criticality Documentation Date Start Date Code Code System Note Provider Name and Address Organization Details Recorded Time 039810 iodine medicatio n Not available Not available Not available 02/07/2025 5933 RxNorm MOE LANDEROS [facility], [facility] 12:01:41 Medications Name Sig Start Date Stop [...] IN THE MORNING ON DAY BEFORE PROCEDURE 06/12 /2024 completed Not Available Not Available Not Available [...] Updated DateTime 02/04/2025 162.56 cm 25.7 kg/m2 93072.86 g LILLIAN MELVIN [facility] 02/04/2025 10:39:17 Date Recorded Body height Body mass index (BMI) Body weight Provider Name and Address Organization Details Last Updated DateTime 04/07/2024 162.56 cm 25.7 kg/m2 79586.86 g AGUEDA Jones'HEUREUAlethea [facility] 04/07/2024 10:06:20 Social History Question Answer Notes LastModified by Organizat ion Details LastModified Time Tobacco Smoking Status Never Smoker AGUEDA burns [place] - [facility] 04/07/2024 10:07:56 What Is Your Relationship Status? ilana Information not available 04/07/2024 Sex: Unknown Functional Status Question Answer Note LastModified by Organizat ion Details LastModified Time Do you use any illicit or recreational drugs? No Information not available 04/07/2024 Do you or have you ever used any other forms of tobacco or nicotine? No Information not available 04/07/2024 What is your level of alcohol consumption? None Information not available 04/07/2024 Mental Status None recorded. Family History Nothing Reported. Medical History Condition Response Allergies/Hayfever N Coronary Artery Disease N Anxiety/Depression N Breathing or lung disorders N Emphysema N Nerve Disorders N Thyroid Problems N COPD N Pacemaker N Anemia N Kidney/Bladder Problems N Vascular Disease N Heart Trouble N Heart Attack ([place]) N Gastrointestinal Disease N Cholesterol Y Diabetes [...] SNOMED-CT Code Diagnosis ICD10 Code Diagnosis Note [id number] [facility] [address] [place] [address] 04/07/2024 09:46:58 04/26/2024 12:22:43 Pain in right thumb [id number] 714186 M79.923 [id number] [facility] [address] [place] [address] 02/04/2025 10:30:53 02/23/2025 12:54:35 Pain of bilateral hands 5726501599 5364015 M79.641 M79.642 Trigger th umb of right hand 6987555310 31605 M65.311 Health Concerns Section Related Observation LastModified by Organization Detai ls LastModified Time None Recorded Concern Status LastModified by Organization Details LastModified Time None Recorded Advance Directives Directive None Recorded Payers Encounter Date Sequence Insurance Name Policy Number Policy Mari Covered Member ID Mari Member ID Guarantor Name 04/07/2024 1 [place] Sully Gary Vega [id number] Sully Vega 02/04/2025 1 [place] Sully Vega Vega [id number] Sully Vega Notes Date Note Type Note [...] ordered, obtained and reviewed independently today at [facility]: None indicated or performed today.Impression: Right [...] to please contact our office immediately.Speech recognition supervisor production department software was used to create portions of this document. An attempt at proofreading has been made to minimize errors. Please call for corrections. Dejah Wiseman PA-C [address] [place] [address] [address] [facility] [place], [place], [address], [facility] - [facility] 04/07/2024 11:34:39 02/04/2025 text/html I am seeing [...] ordered, obtained and reviewed independently today at [facility]: Three-view x-rays of the left hand [...] plan. All questions were answered. Speech recognition supervisor production department software was used to create portions of this document. An attempt at proofreading has been made to minimize errors. Please call for corrections. Dejah Wiseman PA-C [address] [place] [address] [address], [place], [address], [facility] - [facility] 02/04/2025 11:55:27 OBGyn Episode No OBEpisode recorded.
== END 2025-04-05 09:59 | disposition home or self-care (01) ==
LOC: HO.MAMMO 09:58
PROVIDERS: PCP Nurse Practitioner Primary Care; Visit Provider Nurse Practitioner Primary Care
DX: Z12.31 Encounter for screening mammogram for malignant neoplasm of breast (principal)
CPT/HCPCS: 77063; 77067

== ENCOUNTER → 2025-04-05 10:00 | Outpatient (BNV) | payer MEDICAID, SELFPAY | PROVIDERS: PCP Nurse Practitioner Primary Care; Visit Provider Internal Medicine | DX: Z12.31 Encounter for screening mammogram for malignant neoplasm of breast (principal) | CPT/HCPCS: 77063; 77067 ==

== ENCOUNTER 2025-05-03 08:56 | Outpatient (REF) | payer MEDICAID, SELFPAY ==
--- OUTSIDE RECORDS SUMMARY | 2025-05-03 09:16 | XMS_ITS | Data Portability ---
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 Plan of Treatment Reminders Order Date Submit Date Provider Last Modified By Organization Details Last Modified Time Details Appointments POST OP 30 2024 09:30A M Jada Tripp, OTR/L,CHT Not available Not available Not available Lab None recorded. Referral None recorded. Procedures None recorded. Surgeries tenosynov ectomy (SURG) 2024 025 [id number] [facility], [address], [place], [address], 02/17/2025 11:16:00 Imaging XR, hand, 3 or more view - rm 306 3V bilat hand pain 2024 025 [id number] [facility], [address], [address], [address], 02/04/2025 11:55:34 XR, hand, 3 or more view - rm 306 3V left hand pain 2024 025 [id number] [facility], [address], [address], [place], [address], 02/04/2025 11:55:34 Medication Orders None recorded. Patient TargetsNo targets recorded. Patient InstructionsNo instructions recorded. Reason for Referral None Reported. Results Created Date Observation Date Name Description Value Unit Range Abnormal Flag Note LastModifiedBy Organization Detail LastModifiedTime 02/05/20 25 02/04/2025 XR, hand, 3 or more view http:/ [email or web address] ?Encry pted=s hAaTro YD8dLq bEUv6g %2BXZw aYqtaq 0bqfl% 2Fg9IQ a4ajBk vP9nXo QUaueC m3YtLR FvZlgJ JJ8mAn HZtai3 4m5492 AC0KqY 3iDUqK hKiQtr MwF INTERFACE [facility] [address], [place], [address], 02/04/2025 10:52:40 02/05/20 25 02/04/2025 XR, hand, 3 or more view http:/ [email or web address] ?Encry pted=s MadhuaTro YD8dLq bEUv6g %2BXZw aYqtaq 0bqfl% 2Fg9IQ a4ajBk vP9nXo QUaueC m3YtLR FvZlgJ JJ8mAn HZtai3 9i1308 AC0KqY 3iDUqK hKiQtr MwF INTERFACE [facility] [address], [place], [address], 02/04/2025 10:52:42 Result Notes Documentation Provider Name and Address Organization Details Recorded Time Xr, Hand, 3 Or More View : [email or web address] Encrypted=dvLiAuqBY8rRriR Uv6g%1ZMGppWrcvy4jflq%2Fg 5BBk7pyBrvY2uCjZUesnYv8Ws ZYPqXvzWLJ3cOoCCmse88b170 6BH4YhW2dKTsHgBaOwhPkG Not Available [facility] 02/04/2025 10:52: 41 Xr, Hand, 3 Or More View : [email or web address] Encrypted=leGeTcrZI1sRppZ Uv6g%5RFKcmZnnvf1tdao%2Fg 1ADu9eoOvvN5pOhEBkmtMa0Kb TJHqTlvIKE5kHiLDhvz53s371 1MN4TmG6jFEtEkLcJhgAfS Not Available [facility] 02/04/2025 10:52: 43 Problems Name Problem SNOMED Code Status Onset Date Resolution Date Notes Provider Name and Address Organization Details Recorded Time Tendinitis of left hand 0282580200862 9109 Active 2023 AGUEDA Jones'HEUREUAlethea burns [facility] 10:55:49 Problem Notes None recorded. Procedures Surgical History Date Name Laterality Status Provider Name and Address Organization Details Recorded Time 04/26/20 25 TENOSYNOVECTOMY (SURG) completed MOE LANDEROS [facility] 04/28/2025 15:15:47 02/05/20 25 Small Joint Kenalog Injection, L/R completed Dejah Wiseman PA-C [address] [facility], [place], [address], [facility] 02/04/2025 11:53:50 04/07/20 24 Tendon Sheath Kenalog Injection, L/R completed Dejah Wiseman PA-C [address] [facility], [place], [address], [facility] 04/07/2024 10:59:58 Imaging Results None recorded. Procedure Notes None recorded. Medical Equipment None Reported. Allergies Allergen ID Allergen Name Allergen Category Reaction Reaction Severity Criticality Documentation Date Start Date Code Code System Note Provider Name and Address Organization Details Recorded Time 473644 iodine medicatio n Not available Not available Not available 02/07/2025 5933 RxNorm MOE burns [facility] 12:01:41 Medications Name Sig Start Date Stop [...] Not Available Not Available No t Available tramadol 50 mg tablet Take 1 tablet every 6 hours by oral route as needed for 5 days. 2024 active Not Available Not Available Not Avai lable Deep Sea Nasal 0.65 % spray aerosol [...] Updated DateTime 02/04/2025 162.56 cm 25.7 kg/m2 26878.86 g LILLIAN MELVIN [facility] 02/04/2025 10:39:17 Date Recorded Body height Body mass index (BMI) Body weight Provider Name and Address Organization Details Last Updated DateTime 04/07/2024 162.56 cm 25.7 kg/m2 24179.86 g AGUEDA BERRIOS [facility] 04/07/2024 10:06:20 Social History Question Answer Notes LastModified by CoNarrative Details LastModified Time Tobacco Smoking Status Never Smoker AGUEDA BERRIOS [facility] 04/07/2024 10:07:56 What Is Your Relationship Status? Information not available 04/07/2024 Sex: Unknown Functional Status Question Answer Note LastModified by CoNarrative Details LastModified Time Do you use any [...] Response Allergies/Hayfever N Coronary Artery Disease N Breathing or lung disorders N Anxiety/Depression N Emphysema N Nerve Disorders N Thyroid Problems N COPD N Pacemaker N Kidney/Bladder Problems N Anemia N Vascular Disease N Heart Trouble N Gastrointestinal Disease N Heart Attack ([place]) N Cholesterol Y Diabetes N Autoimmune disease [...] SNOMED-CT Code Diagnosis ICD10 Code Diagnosis Note [id number] Dejah Wiseman PA-C [facility] [address] [place] [address] 04/07/2024 09:46:58 04/26/2024 12:22:43 Pain in right thumb 0672216634 389640 M79.631 [id number] Dejah Wiseman PA-C [facility] [address] [place] [address] 02/04/2025 10:30:53 02/23/2025 12:54:35 Pain of bilateral hands 6463735661 3372755 M79.641 M79.642 Trigger th umb of right hand 9951962162 96599 M65.311 Health Concerns Section Related Observation LastModified by Organization Detai ls LastModified Time None Recorded Concern Status LastModified by Organization Details LastModified Time None Recorded Advance Directives Directive None Recorded Payers Insurance Date Sequence Insurance Name Policy Number Policy Mari Covered Member ID Mari Member ID Guarantor Name 04/26/2025 1 [place] [facility] PLAN Sully Vega [id number] Sully Vega Notes Date Note Type Note [...] ordered, obtained and reviewed independently today at [facility]: None indicated or performed today.Impression: Right trigger [...] to please contact our office immediately.Speech recognition housing manager software was used to create portions of this document. An attempt at proofreading has been made to minimize errors. Please call for corrections. Dejah Wiseman PA-C [address] [facility] [address], [place], [address], [place] - [place] [facility] 04/07/2024 11:34:39 02/04/2025 text/html I am seeing [...] ordered, obtained and reviewed independently today at [facility]: Three-view x-rays of the left hand reveal [...] plan. All questions were answered. Speech recognition housing manager software was used to create portions of this document. An attempt at proofreading has been made to minimize errors. Please call for corrections. Dejah Wiseman PA-C [address], [place], [address], [facility] - [place] [facility] 02/04/2025 11:55:27 OBGyn Episode No OBEpisode recorded.
[2025-05-03 12:23] LABS: MANUAL DIFF FLAG NO
[2025-05-03 12:27] LABS: Hematocrit 38.7 % (37.0-47.0); Hemoglobin 12.8 g/dl (12.0-16.0); Imm Gran Abs Auto 0.01 X10*3/uL (0.00-0.03); Imm Gran Pct Auto 0.2 % (0.0-0.4); Lymphocytes Absolute Auto 1.7 X10*3/uL (1.2-4.9); Mean Corpuscular HGB Conc 33.1 g/dl (31.0-35.0); Mean Corpuscular Hemoglobin 32.0 pg (27.0-33.0); Mean Corpuscular Volume 96.8 fL (80.0-98.0); NRBC Abs Auto 0.000 X10*3/uL (0.0-0.012); NRBC Pct Auto 0.0 /100WBC (0.0-0.2); Platelet Count 248 X10*3/uL (160-400); Red Blood Count 4.00 X10*6/uL (4.20-5.50); White Blood Count 4.6 X10*3/uL (4.8-10.8)
[2025-05-03 12:46] LABS: Hemoglobin A1C 143.2820 umol/L; Total Hemoglobin (HGBA1C) 3442.1409 umol/L
[2025-05-03 13:10] LABS: Vitamin B12 302 pg/mL (200-900)
[2025-05-03 14:43] LABS: Cholesterol 249 mg/dL (<200); HDL Cholesterol 46 mg/dL (>40); Triglycerides 170 mg/dL (<150)
== END 2025-05-03 08:57 | disposition home or self-care (01) ==
LOC: HO.HHCL 08:56
PROVIDERS: PCP Nurse Practitioner Primary Care; Visit Provider Nurse Practitioner Primary Care
DX: R06.02 Shortness of breath (principal); R73.01 Impaired fasting glucose; E78.5 Hyperlipidemia, unspecified
CPT/HCPCS: 36415; 80061; 82607; 83036; 85025

== ENCOUNTER 2025-05-16 10:45 | Outpatient (REF) | payer MEDICAID, SELFPAY ==
--- NOTE | ~2025-05-16 | US_ITS ---
EXAMINATION: US BLADDER HISTORY: R39.12 - Poor urinary stream COMPARISON: There are no prior studies available for comparison. FINDINGS: Sonographic examination of the urinary bladder was performed before and after voiding. Before voiding, the urinary bladder measured 11.8 x 8.3 x 10.3, for an estimated volume of 527 mL. After voiding, the urinary bladder measured 4.8 x 3.2 x 5.4, for an estimated volume of 43.7 mL. No intrinsic bladder abnormality is identified. Bilateral ureteral jets are identified. US/US bladder IMPRESSION: Unremarkable sonographic examination of the urinary bladder. Post void bladder residual of 43.7 mL. Electronically signed by: Des Singh MD 05/16/2025 11:34 AM EDT
--- OUTSIDE RECORDS SUMMARY | 2025-05-16 11:50 | XMS_ITS | Data Portability ---
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 Plan of Treatment Reminders Order Date Submit Date Provider Last Modified By Organization Details Last Modified Time Details Appointments None recorded. Lab None recorded. Referral None recorded. Procedures None recorded. Surgeries tenosynovec huber (SURG) 2024 025 [email or web address] 0 [facility], [address], [place], [address], 5 11:16:00 Imaging XR, hand, 3 or more view - rm 306 3V bilat hand pain 2024 025 [email or web address] [facility], [address], [place], [address], 5 11:55:34 XR, hand, 3 or more view - rm 306 3V left hand pain 2024 025 [email or web address] [facility], [address], [address], [place], [address], 5 11:55:34 Medication Orders None recorded. Patient TargetsNo targets recorded. Patient InstructionsNo instructions recorded. Reason for Referral None Reported. Results Created Date Observation Date Name Description Value Unit Range Abnormal Flag Note LastModifiedBy Organization Detail LastModifiedTime 02/05/20 25 02/04/2025 XR, hand, 3 or more view http:/ [email or web address] ?Encry pted=s Sharon YD8dLq bEUv6g %2BXZw aYqtaq 0bqfl% 2Fg9IQ a4ajBk vP9nXo QUaueC m3YtLR FvZlgJ JJ8mAn HZtai3 1p8889 AC0KqY 3iDUqK hKiQtr MwF INTERFACE [facility] Office [address], [place], [address], 02/04/2025 10:52:40 02/05/20 25 02/04/2025 XR, hand, 3 or more view http:/ [email or web address] ?Encry pted=sandra Herrera YD8dLq bEUv6g %2BXZw aYqtaq 0bqfl% 2Fg9IQ a4ajBk vP9nXo QUaueC m3YtLR FvZlgJ JJ8mAn HZtai3 3d3548 AC0KqY 3iDUqK hKiQtr MwF INTERFACE [facility] [address] [address], [place], [address], 02/04/2025 10:52:42 Result Notes Documentation Provider Name and Address Organization Details Recorded Time Xr, Hand, 3 Or More View : [email or web address]? Encrypted=psFvXxwIO3zQsuZ Uv6g%3UUJsuAgvtp7mhcp%2Fg 5QKe9cbYjaX1kMdGDswrMv4Af KAFiNehQHE2mXyONvsj17w405 1UC9UlW7qNAsHdVdLrhEdB Not Available [facility] 02/04/2025 10:52: 41 Xr, Hand, 3 Or More View : [email or web address] Encrypted=aeCqYzfAN7xQznL Uv6g%5TLOjxXeteo5iafz%2Fg 1LRg2sgRfeM0aWbNNzxiQo7Da EHDmHptZJG5yOgBHaxa06s413 4DU9XyU9dJTaNxXoDqvOrO Not Available [facility] 02/04/2025 10:52: 43 Problems Name Problem SNOMED Code Status Onset Date Resolution Date Notes Provider Name and Address Organization Details Recorded Time Tendinitis of left hand 5617149330059 9109 Active 2023 KAYLIA L'HEUREUX grant [facility] 10:55:49 Problem Notes None recorded. Procedures Surgical History Date Name Laterality Status Provider Name and Address Organization Details Recorded Time 04/26/20 25 TENOSYNOVECTOMY (SURG) completed MOE LANDEROS [facility] 04/28/2025 15:15:47 02/05/20 25 Small Joint Kenalog Injection, L/R completed Dejah Wiseman PA-C [address], [place], [address], [facility] 02/04/2025 11:53:50 04/07/20 24 Tendon Sheath Kenalog Injection, L/R completed Dejah Wiseman PA-C [address], [place], [address], [facility] 04/07/2024 10:59:58 Imaging Results None recorded. Procedure Notes None recorded. Medical Equipment None Reported. Allergies Allergen ID Allergen Name Allergen Category Reaction Reaction Severity Criticality Documentation Date Start Date Code Code System Note Provider Name and Address Organization Details Recorded Time 234600 iodine medicatio n Not available Not available Not available 02/07/2025 5933 RxNorm MOE burns [facility] 12:01:41 Medications Name Sig Start Date Stop Date Status Note LastModified by Organization Details LastModified Time multivitami n tablet TAKE 1 TABLET BY MOUTH EVERY EVENING WITH FOOD active Not Available Not Available No t Available losartan 50 mg tablet TAKE 1 TABLET BY MOUTH EVERY DAY AT BEDTIME active Not Available Not Available [...] hr TAKE 1 TABLET BY MOUTH EVERY DAY DO NOT BREAK, CRUSH, DISSOLVE OR CHEW active Not Available Not Available No t Available polyvinyl alcohol 1.4 % eye drops PLACE 1 DROP IN EACH EYE EVERY NIGHT DIRECTED 04/07 completed Not Available Not Available Not Available clonazepam 0.5 mg tablet TAKE 1 TABLET BY MOUTH AT BEDTIME active Not Available Not Available No t Available tramadol 50 mg tablet TAKE 1 TABLET BY MOUTH EVERY 6 HOURS NEEDED FOR 5 DAYS active Not Available Not Available No [...] Not Available Not Available No t Available olmesartan 20 mg tablet TAKE 1 TABLET BY MOUTH ONCE DAILY active Not Available Not Available No t Available ezetimibe 10 mg tablet TAKE 1 TABLET BY MOUTH EVERY DAY active Not Available Not Available No t Available omega-3 acid ethyl esters 1 gram capsule TAKE 2 CAPSULES BY MOUTH TWICE DAILY active Not Available Not Available No t [...] mg tablet TAKE 1 TABLET BY MOUTH ONCE DAILY active Not Available Not Available No t Available Vitals Date Recorded Body height Body mass index (BMI) Body weight Provider Name and Address Organization Details Last Updated DateTime 02/04/2025 162.56 cm 25.7 kg/m2 69543.86 g LILLIAN MELVIN [facility] 02/04/2025 10:39:17 Date Recorded Body height Body mass index (BMI) Body weight Provider Name and Address Organization Details Last Updated DateTime 04/07/2024 162.56 cm 25.7 kg/m2 90673.86 g AGUEDA BERRIOS [facility] 04/07/2024 10:06:20 Social History Question Answer Notes LastModified by [employer] Details LastModified Time Tobacco Smoking Status Never Smoker AGUEDA BERRIOS [facility] 04/07/2024 10:07:56 What Is Your Relationship Status? Information not available 04/07/2024 Sex: Unknown Functional Status Question Answer Note LastModified by [employer] Details LastModified Time Do you use any [...] Trouble N Gastrointestinal Disease N Heart Attack (MT) N Cholesterol Y Diabetes N Autoimmune disease N Bleeding Disorder N Orthotics N Arthritis Y Seizures/Epilepsy N Blood Clot N AIDS/HIV Y Congestive Heart Failure (CHF) N Acid Reflux (GERD) N Cancer N Stroke N Asthma N Circulation Problems N Peripheral Vascular Disease N Sleep Apnea Y Hepatitis N Heart Disease N Rheumatoid Arthritis N Pulmonary Embolism N Arrhythmia N Fibromyalgia N Headaches N Hypertension Y Osteoporosis N Gynecological HistoryNo gynecological history recorded. Obstetrics History GPAL:G 0 P 0 0 0 0 Past Encounters Encounter ID Performer Location Encounter Start Date Encounter Closed Date Diagnosis/Indication Diagnosis SNOMED-CT Code Diagnosis ICD10 Code Diagnosis Note [id number] Dejah Wiseman PA-C [facility] [address] [place] [address] 04/07/2024 09:46:58 04/26/2024 12:22:43 Pain in right thumb [id number] 218849 M79.972 [id number] Dejah Wiseman PA-C [facility] [address] [place] [address] 02/04/2025 10:30:53 02/23/2025 12:54:35 Pain of bilateral hands [id number] 1650462 M79.641 M79.642 Trigger th umb of right hand [id number] 39401 M65.994 [id number] Jada Tripp, OTR/L,CHT [facility] [address] [place] [address] 05/09/2025 11:13:54 05/09/2025 11:54:01 Trigger thumb of right hand [id number] 27057 M65.311 This patient is primarily Wolof-sp eaking and I provided informatio n and education today through an interprete r. Handouts issued today were in swedish when available or used simple language and pictures for ease of recognitio n. The patient showed good understand ing throughout the visit. This visit was completed today under the supervisio n of Dr. Ihsan schulz. Upon welcoming the patient from the waiting room into the clinic, I am able to observe how the involved extremity is used functional ly. The patient demonstrat es avoids use of the surgical hand for such activities as gathering personal items, and pushing up from the chair. The surgical wound is inspected and found to be clean and dry. The edges of the incision are approximat ed with intact sutures. Patient has intact neurovascu lar structures with only slight tenderness at the incision. No surroundin g erythema, wound drainage, warmth or signs of infection. The patient states no pain when palpating around the surgical site and the surroundin g structures . The involved digit is able to demonstrat e full involvemen t in a nearly full composite flexion and is able to demonstrat e full extension The patient is able to demonstrat e both tip, tripod, and lateral pinch. Postoperative visit [id number] Z48.89 Sutures are removed today without complicati on. Scar massage was demonstrat ed including a variety of movements to disperse the fibrotic tissue which, if untouched, would create a thickened area of scar. This is instructed with a handout given to the patient. Additional home exercises including range of motion and tendon gliding were demonstrat ed in the office today with a handout also provided. Further discussion about the MELT technique using a small ball for palmar massage with informatio n was provided. Per the surgeon , since there are no wound care complicati ons or concerns, no follow up appointmen t needed. The patient has been educated with a significan t Home Exercise Program to be completed over the next 2 weeks. The patient was instructed to contact the office if there should arise any concerns with the surgical site or if there is not sufficient functional recovery. All questions, with regards to return to functional activities , are answered prior to leaving the office today. This office visit was complete at 15 minutes. Health Concerns Section Related Observation LastModified by Organization Detai ls LastModified Time None Recorded Concern Status LastModified by Organization Details LastModified Time None Recorded Advance Directives Directive None Recorded Payers Insurance Date Sequence Insurance Name Policy Number Policy Mari Covered Member ID Mari Member ID Guarantor Name 05/07/2025 1 [place] [facility] Sully Vega [id number] Sully Vega Notes Date Note Type Note [...] ordered, obtained and reviewed independently today at [facility]: None indicated or performed today.Impression: [...] to please contact our office immediately.Speech recognition oil [employer] dispatcher software was used to create portions of this document. An attempt at proofreading has been made to minimize errors. Please call for corrections. Dejah Wiseman PA-C [address], [place], [address], [facility] 04/07/2024 11:34:39 02/04/2025 text/html I am seeing [...] ordered, obtained and reviewed independently today at [facility]: Three-view x-rays of the left [...] plan. All questions were answered. Speech recognition [employer] dispatcher software was used to create portions of this document. An attempt at proofreading has been made to minimize errors. Please call for corrections. Dejah Wiseman PA-C [address], [place], [address], [facility] 02/04/2025 11:55:27 05/09/2025 text/html This is a very pleasant 64-year-old primarily Wolof-speaking woman who presents to the office today at 2 weeks post right thumb tenolysis procedure on 04/26/[address] Avila. Today we will assess the wound for suture removal and initiate a home program Jada Tripp OTR/Karen,CHT [address], [place], [address], [facility] 05/09/2025 11:49:28 OBGyn Episode No OBEpisode recorded.
== END 2025-05-16 10:46 | disposition home or self-care (01) ==
LOC: HO.US 10:45
PROVIDERS: PCP Nurse Practitioner Primary Care; Visit Provider Nurse Practitioner Family
DX: R39.12 Poor urinary stream (principal)
CPT/HCPCS: 76857

== ENCOUNTER → 2025-05-16 10:51 | Outpatient (BNV) | payer MEDICAID, SELFPAY | PROVIDERS: PCP Nurse Practitioner Primary Care; Visit Provider Radiology Diagnostic Radiology | DX: R39.12 Poor urinary stream (principal) | CPT/HCPCS: 76857 ==

== ENCOUNTER 2025-05-31 11:37 | Outpatient (REF) | payer MEDICAID, SELFPAY | END 2025-05-31 11:38 | disposition home or self-care (01) | LOC: HO.LAB 11:37 | PROVIDERS: PCP Nurse Practitioner Primary Care; Visit Provider Nurse Practitioner Family | DX: R31.29 Other microscopic hematuria (principal); Z13.9 Encounter for screening, unspecified | CPT/HCPCS: 51798; 81003; 88112; 99212 ==

== ENCOUNTER 2025-05-31 11:37 | Outpatient (AMB) | payer MEDICAID, SELFPAY ==
--- NOTE | 2025-05-31 11:39 | MHC.OFFVIS ---
Intake Visit Reasons: 3M follow up/ US(set) Intake Note: Patient is present for 3M/US Urology Medication:NONE Antibiotic Allergy:NONE Blood Thinner:NONE TODAY'S PVR:0ML'S Dust Collector Ore Crushing Required: No Allergies Iodinated Contrast Media Allergy (Verified 05/31/25 12:17) Swelling Medication List - Last Reconciled 05/31/25 by AMARJIT Elmore erzqhuhuo-ycvxankv-qzzumpz ala 50-200-25 mg (Biktarvy) 1 tab PO DAILY clonazepam 0.25 mg PO BEDTIME gabapentin 600 mg PO BEDTIME metoprolol succinate ER 50 mg PO DAILY omega-3 fatty acids 1,000 mg PO DAILY HPI Comments Details: Sully is a very pleasant 64-year-old Maldivian-speaking female patient of Dr. still. She has a past medical history of depression, HIV, fibromyalgia, hypercholesteremia, hypertension, and obstructive sleep apnea on CPAP. She presents to the office today for follow-up of her microscopic hematuria. In discussion with the patient today she reports to be doing and feeling well. She denies having had any bothersome urinary issues or concerns since her last office visit here. Recent bladder ultrasound results were reviewed 05/16 unremarkable sonographic examination of the urinary bladder. Previous workup has also included a renal ultrasound 01/18 that noted bilateral kidneys are normal in size and echotexture. There is a possible left renal calculus within the calyceal diverticulum. No acute findings. Previous urine cytology results were reviewed 03/20 Negative for high-grade urothelial carcinoma. She denies any previous history of nicotine dependence and or workplace chemical exposure. She reports episodes of urinary urgency and frequency she had been experiencing has since subsided. We discussed previous microscopic hematuria was noted to be 1+ today urinalysis notes trace microscopic hematuria. We did discussed potential causes of microscopic hematuria. We did discussed surveillance monitoring verses further workup to include cystoscopy. Risks and benefits of these interventions were discussed. She otherwise offers no other issues or concerns at this time. [facility] Medical History Depression HIV (human immunodeficiency virus infection) Fibromyalgia Elevated cholesterol HTN (hypertension) CAMILO on CPAP Surgical History H/O colonoscopy H/O eye surgery H/O wrist surgery H/O shoulder surgery Family History Mother Diabetes Heart disease Arthritis Neuropathy Father HTN (hypertension) Lung disease Son Asthma Social History Are you a primary transitional care manager to a significant other at home: No Do you presently have visiting nurse or other home services: No Alcohol intake: never Patient Tobacco Use Status: Never used Tobacco Review of Systems Const All systems reviewed & are unremarkable except as noted in HPI and below Physical Exam Const General: cooperative, healthy appearing, comfortable, no acute distress, well developed, alert and awake Orientation/consciousness: patient oriented x3 Limitations: language barrier HEENT Head: Yes normal to inspection, Yes normocephalic and Yes atraumatic Ears: hearing grossly normal bilaterally Eyes General: appearance normal, both eyes and all related structures Neck Neck: Yes normal visual inspection and Yes trachea midline Chest Chest palpation & inspection: normal inspection of the chest Resp Effort & Inspection: normal respiratory effort and able to speak in complete sentences Cardio Rate: regular rate GI Inspection: Yes normal to inspection General: Yes no CVA tenderness Back/Spine/Pelvis Back: no CVA tenderness Skin General skin exam: no rashes or lesions noted Neuro General: patient oriented x3 Extrem General: Yes normal to inspection Psych Appearance: grossly normal and well kempt Mental Status: mental status grossly normal Speech and movement: Normal speech and movement present and Clear speech present Affect: normal affect Attitude: cooperative Thought process: Normal thought process present Thought content: Normal thought content present Insight: Fair insight present (Psych) Judgement: Fair judgement present (Psych) Office Procedures Post Void Residual Post Residual Void Post Void Residual (PVR): 0 48831-Dabu Void Residual by ultrasound Results AMB Urinalysis, Automated UA Leukoctes 0 Leighton/uL Last Edit by SALLY Lawler on 05/31/25 12:01 UA Nitrite Negative Last Edit by SALLY Lawler on 05/31/25 12:01 UA Urobilinogen 0.2 mg/dL Last Edit by SALLY Lawler on 05/31/25 12:01 UA Protein 0 mg/dL Last Edit by SALLY Lawler on 05/31/25 12:01 UA pH 6.4 Last Edit by SALLY Lawler on 05/31/25 12:01 UA Blood 10 Oswaldo/uL Last Edit by SALLY Lawler on 05/31/25 12:01 UA Specific [place] 1.010 Last Edit by SALLY Lawler on 05/31/25 12:01 UA Ketone Negative Last Edit by SALLY Lawler on 05/31/25 12:01 UA Bilirubin 0 mg/dL Last Edit by SALLY Lawler on 05/31/25 12:01 UA Glucose 0 mg/dL Last Edit by SALLY Lawler on 05/31/25 12:01 Results Reviewed Results Reviewed: Laboratory Last Values Urine pH (Auto) 6.4 05/31/25 12:00 Specific [place] (Auto) 1.010 05/31/25 12:00 Urine Protein (Auto) 0 mg/dL 05/31/25 12:00 Glucose (UA)(Auto) 0 mg/dL 05/31/25 12:00 Urine Ketones (Auto) Negative 05/31/25 12:00 Urine Blood (Auto) 10 Oswaldo/uL 05/31/25 12:00 Urine Nitrite (Auto) Negative 05/31/25 12:00 Urine Bilirubin (Auto) 0 mg/dL 05/31/25 12:00 Urine Urobilinogen (Auto) 0.2 mg/dL 05/31/25 12:00 Leukocyte Esterase (Auto) 0 Leighton/uL 05/31/25 12:00 Assessment & Plan Assessment & Plan (1) Microscopic hematuria: Code(s): R31.29 - Other microscopic hematuria Category: Medical Plan In office urinalysis results reviewed with the patient today; as noted above; will send for urine cytology. Recent bladder ultrasound results reviewed with the patient today; as noted above. Previous urine cytology results reviewed with the patient today; as noted above. All questions were answered. We discussed further workup to include cystoscopy versus surveillance monitoring; risks and benefits of these interventions were discussed. Will continue with surveillance monitoring. She currently denies any bothersome urinary issues or concerns. She reports be happy with current voiding parameters. Follow-up in 6 months; or sooner with any issues, concerns, and or questions. Orders: Orders AMB Urinalysis Automated Today Z13.9 - Encounter for screening, unspecified Urine Cytology Today R31.29 - Other microscopic hematuria Patient Instructions: The patient had an opportunity to ask questions regarding the treatment plan. All questions were answered. Physical exam, labs, and imaging were discussed and reviewed in detail. As well as risks, benefits, and discussion of treatment choices. No major barriers to understanding were identified. The patient expressed understanding and agreement with the above treatment plan. The patient was made aware they should contact our office by phone for worsening of their current condition, the appearance of new symptoms, or with any questions or concerns. Compliance is encouraged with any medications and follow up testing that is ordered. It is a privilege to be allowed the opportunity to participate in? your urological care.? Again, if you have any questions or concerns If you have any questions or concerns please do not hesitate to contact me. The office is [phone]. This note is constructed using voice recognition software. While every effort has been made to ensure accuracy grounds crew supervisor errors may have been included. Yours sincerely, AMARJIT Elmore Coding Level of Care Code Est Pt Level 3 (10648) Diagnoses Microscopic hematuria R31.29 CPT Codes Post Residual Void - PVR CPT Code: 89216-Uozw Void Residual by ultrasound ([id number])
== END 2025-05-31 12:14 | disposition home or self-care (01) ==
LOC: HO.HUSH 11:38
PROVIDERS: PCP Nurse Practitioner Primary Care; Visit Provider Nurse Practitioner Family
DX: R31.29 Other microscopic hematuria (principal); Z13.9 Encounter for screening, unspecified
CPT/HCPCS: 99213

== ENCOUNTER 2025-06-16 14:14 | Outpatient (REF) | payer MEDICAID, SELFPAY | END 2025-06-16 14:15 | disposition home or self-care (01) | LOC: HO.HHCLNP 14:14 | PROVIDERS: Visit Provider Advanced Practice Midwife | DX: Z12.4 Encounter for screening for malignant neoplasm of cervix (principal) | CPT/HCPCS: 88175 ==

== ENCOUNTER 2025-07-15 14:23 | Outpatient (REF) | payer MEDICAID, SELFPAY ==
--- NOTE | ~2025-07-15 | XR_ITS ---
EXAMINATION: XR CHEST CLINICAL INFORMATION: bronchitis? COMPARISON: 11/15/2024. TECHNIQUE: 2 views of the chest were obtained. FINDINGS: The cardiac, hilar, and mediastinal contours are normal. The lungs are clear bilaterally. There is no pneumothorax or pleural effusion. There is no focal osseous or soft tissue abnormality. Surgical anchors in the right humeral head. XR/XR chest 2V IMPRESSION: No active pulmonary disease. Electronically signed by: Laz Ricks MD 07/15/2025 02:39 PM EDT
== END 2025-07-15 14:24 | disposition home or self-care (01) ==
LOC: HO.HHCX 14:23
PROVIDERS: Visit Provider Internal Medicine
DX: J40 Bronchitis, not specified as acute or chronic (principal)
CPT/HCPCS: 71046

== ENCOUNTER → 2025-07-15 14:23 | Outpatient (BNV) | payer MEDICAID, SELFPAY | PROVIDERS: Visit Provider Radiology Diagnostic Radiology | DX: Z03.89 Encounter for observation for other suspected diseases and conditions ruled out (principal) | CPT/HCPCS: 71046 ==

== ENCOUNTER 2025-07-18 09:11 | Outpatient (REF) | payer MEDICAID, SELFPAY ==
[2025-07-18 11:34] LABS: MANUAL DIFF FLAG NO
[2025-07-18 11:37] LABS: Hematocrit 38.4 % (37.0-47.0); Hemoglobin 12.6 g/dl (12.0-16.0); Imm Gran Abs Auto 0.02 X10*3/uL (0.00-0.03); Imm Gran Pct Auto 0.4 % (0.0-0.4); Lymphocytes Absolute Auto 2.0 X10*3/uL (1.2-4.9); Mean Corpuscular HGB Conc 32.8 g/dl (31.0-35.0); Mean Corpuscular Hemoglobin 32.1 pg (27.0-33.0); Mean Corpuscular Volume 98.0 fL (80.0-98.0); NRBC Abs Auto 0.000 X10*3/uL (0.0-0.012); NRBC Pct Auto 0.0 /100WBC (0.0-0.2); Platelet Count 299 X10*3/uL (160-400); Red Blood Count 3.92 X10*6/uL (4.20-5.50); White Blood Count 5.0 X10*3/uL (4.8-10.8)
[2025-07-18 11:53] LABS: Alanine Aminotransferase 28 U/L (0-31); Albumin Level 4.3 g/dL (3.5-5.0); Alkaline Phosphatase 65 U/L (39-117); Anion Gap 8 (12-20); Aspartate Amino Transferase 27 U/L (5-31); Blood Urea Nitrogen 15 mg/dL (9-16); Calcium 9.0 mg/dL (8.4-10.2); Carbon Dioxide 30 mmol/L (22-29); Chloride 106 mmol/L (96-108); Cholesterol 194 mg/dL (<200); Estimated Glomerular Filt Rate > 60; HDL Cholesterol 38 mg/dL (>40); Potassium 4.3 mmol/L (3.3-5.1); Sodium 140 mmol/L (135-145); Total Protein 7.1 g/dL (6.5-8.0); Triglycerides 121 mg/dL (<150)
[2025-07-18 12:42] LABS: Reflex LDLD? No
[2025-07-20 01:02] LABS: HIV RNA PCR Qn Copies <20 DETECTED copies/mL (NOT DETECTED); HIV RNA PCR Qn Log Copies <1.30 DETECTED (NOT DETECTED)
[2025-07-22 16:03] LABS: Absolute CD3 Count 1630 cells/uL (840-3060); Absolute CD8 Count 772 cells/uL (180-1170); Percent CD3 Cells 70 % (57-85); Percent CD8 Cells 33 % (12-42)
== END 2025-07-18 09:12 | disposition home or self-care (01) ==
LOC: HO.HHCL 09:11
PROVIDERS: PCP Nurse Practitioner Primary Care; Visit Provider Student in an Organized Health Care Education/Training Program
DX: Z21 Asymptomatic human immunodeficiency virus [HIV] infection status (principal)
CPT/HCPCS: 36415; 80053; 80061; 85025; 86359; 86360; 87536

== ENCOUNTER 2025-10-06 16:31 | Outpatient (REF) | payer MEDICAID, SELFPAY ==
[2025-10-06 18:32] LABS: Microalbum/Creatinine Ratio Ur 7.8 ug/mg cr (<30)
--- OUTSIDE RECORDS SUMMARY | 2025-10-06 23:23 | XMS_ITS | Data Portability ---
Author Organization [facility] - Jh [facility] Address [address] [place] [address] Care Team Providers Care Branch Account Manager Name Role Phone UNRULY DE JESUS Primary Care Provider [phone] Assessment No assessment recorded. Plan of Treatment Reminders Order Date Submit Date Provider Last Modified By Organization Details Last Modified Time Details Appointments None recorded. Lab None recorded. Referral None recorded. Procedures None recorded. Surgeries tenosynovec huber (SURG) 2024 025 [email or web address] 0 [facility], [address], [place], [address], 5 11:16:00 Imaging XR, hand, 3 or more view - rm 306 3V bilat hand pain 2024 025 [email or web address] [facility], [address], [place], [address], 5 11:55:34 XR, hand, 3 or more view - rm 306 3V left hand pain 2024 025 [id number] [facility], [address], [place], [address], 5 11:55:34 Medication Orders None recorded. Patient [...] a4ajBk vP9nXo QUaueC m3YtLR FvZlgJ JJ8mAn HZtai3 8a3078 AC0KqY 3iDUqK hKiQtr MwF INTERFACE [facility] Office [address], [place], [address], 02/04/2025 10:52:40 02/05/20 25 02/04/2025 XR, hand, 3 or more view http:/ [email or web address] ?Encry pted=sandra Herrera YD8dLq bEUv6g %2BXZw aYqtaq 0bqfl% 2Fg9IQ a4ajBk vP9nXo QUaueC m3YtLR FvZlgJ JJ8mAn HZtai3 6e9652 AC0KqY 3iDUqK hKiQtr MwF INTERFACE [facility] [address] [address], [place], [address], 02/04/2025 10:52:42 Result Notes Documentation Provider Name and Address Organization Details Recorded Time Xr, Hand, 3 Or More View : [email or web address] Encrypted=xiLxRqkDW6aSdcH Uv6g%9NTUsnNxmuc4mxnc%2Fg 2HFd4ebMnuS6uGiDUjdjXj9Qe VGWbNrkNLV9eJuPLhgd29o288 0MK7WwD4kXGpQxUgEejJpG Not Available [facility] 02/04/2025 10:52: 41 Xr, Hand, 3 Or More View : [email or web address] Encrypted=lpXtVobHA9tPdoY Uv6g%7ZMTsaJdjzq8crda%2Fg 3QDh4kcYgaD6sXqBUrrgTn5Xc XHJtPhsXBR0tRaNHqom87m464 4PR4ExZ0qNZrGyCvEnnKpA Not Available [facility] 02/04/2025 10:52: 43 Problems Name Problem SNOMED Code Status Onset Date Resolution Date Notes Provider Name and Address Organization Details Recorded Time Tendinitis of left hand 6636217270576 9109 Active 2023 KAYLIA L'HEUREUX grant [facility] 10:55:49 Problem Notes None recorded. Procedures Surgical History Date Name Laterality Status Provider Name and Address Organization Details Recorded Time 04/26/20 25 TENOSYNOVECTOMY (SURG) completed MOE LANDEROS [facility] 04/28/2025 15:15:47 02/05/20 25 Small Joint Kenalog Injection, L/R completed Dejah Wiseman PA-C [address], [place], [address], [facility] 02/04/2025 11:53:50 04/07/20 24 Tendon Sheath Kenalog Injection, L/R completed Dejah Wiseman PA-C [address], [place], [address], [facility] 04/07/2024 10:59:58 Imaging Results None recorded. Procedure Notes None recorded. Medical Equipment None Reported. Allergies Allergen ID Allergen Name Allergen Category Reaction Reaction Severity Criticality Documentation Date Start Date Code Code System Note Provider Name and Address Organization Details Recorded Time 672722 iodine medicatio n Not available Not available Not available 02/07/2025 5933 RxNorm MOE burns [facility] 12:01:41 Medications Name Sig [...] Updated DateTime 02/04/2025 162.56 cm 25.7 kg/m2 14144.86 g LILLIAN MELVIN [facility] 02/04/2025 10:39:17 Date Recorded Body height Body mass index (BMI) Body weight Provider Name and Address Organization Details Last Updated DateTime 04/07/2024 162.56 cm 25.7 kg/m2 95993.86 g AGUEDA BERRIOS [facility] 04/07/2024 10:06:20 Social History Question Answer Notes LastModified by [employer] Details LastModified Time Tobacco Smoking Status Never Smoker AGUEDA BERRIOS [facility] 04/07/2024 10:07:56 What Is Your Relationship Status? Information not available 04/07/2024 Sex: Unknown Functional Status Question Answer Note LastModified by [employer] Details LastModified Time Do you use any [...] Trouble N Gastrointestinal Disease N Heart Attack (SD) N Cholesterol Y Diabetes N Autoimmune disease [...] Diagnosis SNOMED-CT Code Diagnosis ICD10 Code Diagnosis IMO Codes Diagnosis Note [id number] Dejah Wiseman PA-C [facility] [address] [place] [address] 04/07/2024 09:46:58 04/26/2024 12:22:43 Pain in right thumb 3503988157 335222 M79.047 [id number] Dejah Wiseman PA-C [facility] [address] [place] [address] 02/04/2025 10:30:53 02/23/2025 12:54:35 Pain of bilateral hands [id number] 6015829 M79.641 M79.642 [id number] Trigger th umb of right hand 2676290984 59929 M65.404 [id number] Jada Tripp, OTR/L,CHT [facility] [address] [place] [address] 05/09/2025 11:13:54 05/09/2025 11:54:01 Trigger thumb of right hand 6050267330 46566 M65.002 [id number] This patient is primarily Somali-sp eaking and I provided informatio n and education today through an interprete r. Handouts issued today were in kuwaiti when available or used simple language and [...] tip, tripod, and lateral pinch. Postoperative visit 9968 24657 Z48.89 [id number] Sutures are removed today without complicati on. [...] Member ID Guarantor Name 05/07/2025 1 [place] [facility] Sully Vega [id number] Sully Vega Notes Date Note Type Note [...] ordered, obtained and reviewed independently today at [facility]: None indicated or performed today.Impression: Right [...] to please contact our office immediately.Speech recognition bead wire taper software was used to create portions of this document. An attempt at proofreading has been made to minimize errors. Please call for corrections. Dejah Wiseman PA-C [address] [place] [address] [address], [place], [address], [facility] [place] [facility] 04/07/2024 11:34:39 02/04/2025 text/html [...] ordered, obtained and reviewed independently today at [facility]: Three-view x-rays of the left hand reveal [...] plan. All questions were answered. Speech recognition bead wire taper software was used to create portions of this document. An attempt at proofreading has been made to minimize errors. Please call for corrections. Dejah Wiseman PA-C [address], [place], [address], [facility] 02/04/2025 11:55:27 05/09/2025 text/html This is a very pleasant 64-year-old primarily Somali-speaking woman who presents to the office today at 2 weeks post right thumb tenolysis procedure on 04/26/[address] Avila. Today we will assess the wound for suture removal and initiate a home program Jada Tripp, STACIAR/L,CHT [address], [place], [address], [facility] 05/09/2025 11:49:28 OBGyn Episode No OBEpisode recorded.
== END 2025-10-06 16:32 ==
LOC: HO.HHCLNP 16:31
PROVIDERS: Visit Provider Nurse Practitioner Primary Care
DX: I10 Essential (primary) hypertension (principal)
CPT/HCPCS: 82043; 82570